=== PATIENT | female | born 1955 | race Caucasian/White ===

== ENCOUNTER 2020-08-31 05:20 | Inpatient (IN) ==
[2020-08-31] MEDS ORDERED: ONDANSETRON INJ 2 MG/ML 2 ML VIAL IV STA (05:41)
[2020-08-31] MEDS ORDERED: fentaNYL citrate 100 MCG/2 ML VIAL IV STA (05:41)
[2020-08-31] MEDS ORDERED: SODIUM CHLORIDE 0.9% 1000ML 1,000 ML IV ONE (05:41)
--- NOTE | 2020-08-31 05:46 | Emergency Department Note ---
Impression & Plan Acute cholecystitis, Hypertensive urgency, Acute hyperglycemia, Acute dehydration ED Provider Note Name: RAYMOND DE LA VEGA Age: 64 Sex: F Arrives Via: Walk-In Informant: Patient ED Provider: Zachariah Jackson MD Chief Complaint: Abdominal pain Impression: Acute Cholecystitis Hypertensive Urgency Acute Hyperglycemia Acute Dehydration Medical Decision Makin yr old female without medical care the last few years arrives for evaluation epigastric pain and vomiting. Dehydrated on examination with significant HTN. US RUQ obtained given location of pain and exam. Still HTN post pain control thus Labetalol ordered. US with concern for cholecystitis. Labs consistent with mild bili bump as well as some LFT elevations likely consistent with cholecystitis. She is hyperglycemic and I suspect this is finding of her being diabetic. Beta a bit elevated though I feel this is more likely dehydration than acute DKA. She has no evidence of acs. Pain is controlled with single dose pain med and dissection seems less likely with findings of cholecystitis on US. BP still elevated post 1st labetalol thus second dose administered while awaiting hospitalist evaluation. Prior Medical Record and Triage/Nursing Notes reviewed by Me Differentials: Cholecystis, Biliary pathology, diverticulitis, acs, PUD/GERD, Pancreatitis, dissection, aoric rupture, ischemia, SBO/LBO, amongst other pathologies. Vital Signs: reviewed and remarkable for HTN Interventions: saline lock, fentanyl 50mcg iv, zofran 4mg iv, labetalol 10mg iv x 2, nss bolus/gtt, mefoxin 2gm iv Labs:Reviewed and remarkable for elevated lfts, bsg Imaging:Radiologist interpretation reviewed by me: US RUQ concerning for cholecystitis EKG:Per My Interpretation: Indication Epigastric pain: NSR with moderately prolonged qtc 92 bpm, qtc 521. No Ectopy. No Ischemia. No previous for comparison Cardiac/Tele Monitoring: Cardiac Monitoring: An Order was placed for continuous cardiac monitoring. The monitor shows a rate of 90 with a normal sinus rhythm. Consults:Dr Amanuel TEJEDA Hospitalist Plan: Disposition:Hospitalization. Condition: Good History of Present Illness:64 yr old female arrives for evaluation of epigastric pain. Patient notes she developed epigastric pain 3 days ago. Waxes and wanes. Epigastric with mild radiation to back. Associated with nausea and vomiting. Much worse with eating. Better with sitting still. No fevers, syn cope, cp, sob, headache, neck pain, rashes, leg swelling, urinary//bowel symptoms, syncope, nor other symptoms. Using Pepto-Bismol without improvement. Denies previous symptoms like this. No recent trauma nor injury. Previously with . ROS: See above HPI for pertinent positives & negatives. A total of 10 systems reviewed and were otherwise negative. Past Medical History:None Past Surgical History: Family History:Mother stomach CA, brother cholecystitis Social History:Lives with son, no etoh, no tobacco use Home Medications:Multivitamins Allergies:NKDA Vitals:Blood Pressure: 200/111, Pulse 85, RR 20, T 36.5C, O2 97% on RA Physical Exam: GENERAL: Patient is very uncomfortable appearing and in moderate distress. Dehydrated appearing EYES: No scleral icterus, unremarkable pupils. ENT: Mucous membranes dry, no nasal congestion. NECK: No masses appreciated, nomeningismus, trachea is midline. RESPIRATORY: No dyspnea. Clear to auscultation and equal bilaterally. No wheeze, no rhonchi. CARDIOVASCULAR: Regular rate and rhythm.No murmurs, rubs, gallops appreciated. GASTROINTESTINAL: Moderate epigastric/RUQ TTP, otherwise abdomen soft, non- tender, no peritonitis.Bowel sounds positive.No masses appreciated. BACK: No midline tenderness, no CVA tenderness EXTREMITIES: Normal motion all extremities, no cyanosis, no edema. NEUROLOGIC: Alert and oriented, no acute motor or sensory deficits, no focal weakness, cranial nerves grossly intact. SKIN: No rash, no jaundice, no diaphoresis. PSYCH: Appropriate GCS: 15 ED Course: Times/Reassessments: Improvement in pain, some continued mild nausea, BP still elevated Zachariah Jackson MD Past Med/Surg History Medical History Acute cholecystitis Diabetes mellitus type 2 in nonobese Hypertensive urgency Prolonged Q-T interval on ECG Tobacco abuse Transaminitis Surgical History No significant past surgical history Family History Other Family history non-contributory Social History Smoking Status: Current every day smoker Tobacco Type: Cigarettes packs per day: 0.5; Hx Alcohol Use: No Hx Substance Use: No Preferred Language: Citizen Of [place] [employer] Required: No Beliefs That Will Affect Care: Jehovah'S Witness Jehovah'S Witness Beliefs: Gnosticist Current Living Situation: Spouse and Family Current Living Situation Comment: lives with and daughter Other Information That Helps Us Care for You: No Feels Safe at Home: Yes Safety Concerns: Feels Safe At This Time Assistive Devices: Glasses Allergies Allergies Allergy/AdvReac Type Severity Reaction Status Date / Time No Known Allergies Allergy Unverified 08/31/20 06:40 Home Meds Home Medications Medication Instructions Recorded Confirmed No Known Home Medications 08/31/20 08/31/20 Results & Data (ED) Vital Signs Vital Signs - 24 hr 08/31/20 05:20 08/31/20 05:25 08/31/20 05:38 Temperature 36.5 C Temperature Source Oral Pulse Rate 85 96 H Pulse Rate from SpO2 Sensor Respiratory Rate 20 19 Respiratory Effort / Characteristics Non-Labored Spontaneous Respiratory Depth Normal Normal Respiratory Pattern Regular Blood Pressure 200/111 H 225/114 H Blood Pressure Mean 140 151 Blood Pressure Position Sitting Pulse Oximetry 97 99 Oxygen Delivery Method Room Air Room Air Room Air Sepsis Recent Fever Within 48 Hours No Sepsis New/Unexplained Change in Mental Status No Sepsis Action Taken by Nursing No Action Required 08/31/20 05:40 08/31/20 06:00 08/31/20 06:01 Temperature Temperature Source Pulse Rate 97 H 96 H 94 H Pulse Rate from SpO2 Sensor 96 H 95 H 94 H Respiratory Rate 25 H 24 23 Respiratory Effort / Characteristics Respiratory Depth Respiratory Pattern Blood Pressure 226/105 H 240/110 H 228/114 H Blood Pressure Mean 145 153 152 Blood Pressure Position Pulse Oximetry 98 97 96 Oxygen Delivery Method Room Air Room Air Room Air Sepsis Recent Fever Within 48 Hours Sepsis New/Unexplained Change in Mental Status Sepsis Action Taken by Nursing 08/31/20 06:07 08/31/20 06:12 08/31/20 06:50 Temperature Temperature Source Pulse Rate 96 H 94 H 103 H Pulse Rate from SpO2 Sensor 95 H 94 H Respiratory Rate 24 22 31 H Respiratory Effort / Characteristics Respiratory Depth Respiratory Pattern Blood Pressure 231/116 H 241/105 H Blood Pressure Mean 154 150 Blood Pressure Position Pulse Oximetry 97 98 Oxygen Delivery Method Room Air Room Air Sepsis Recent Fever Within 48 Hours Sepsis New/Unexplained Change in Mental Status Sepsis Action Taken by Nursing 08/31/20 06:51 08/31/20 06:52 08/31/20 06:55 Temperature Temperature Source Pulse Rate 102 H 105 H 102 H Pulse Rate from SpO2 Sensor 103 H 104 H 103 H Respiratory Rate 23 24 25 H Respiratory Effort / Characteristics Respiratory Depth Respiratory Pattern Blood Pressure 235/121 H 235/127 H 241/126 H Blood Pressure Mean 159 163 164 Blood Pressure Position Pulse Oximetry 97 96 96 Oxygen Delivery Method Sepsis Recent Fever Within 48 Hours Sepsis New/Unexplained Change in Mental Status Sepsis Action Taken by Nursing 08/31/20 06:58 08/31/20 07:00 08/31/20 07:03 Temperature Temperature Source Pulse Rate 88 85 88 Pulse Rate from SpO2 Sensor 88 87 89 Respiratory Rate 25 H 25 H 25 H Respiratory Effort / Characteristics Respiratory Depth Respiratory Pattern Blood Pressure 225/103 H 220/105 H 228/129 H Blood Pressure Mean 143 143 162 Blood Pressure Position Pulse Oximetry 96 96 96 Oxygen Delivery Method Sepsis Recent Fever Within 48 Hours Sepsis New/Unexplained Change in Mental Status Sepsis Action Taken by Nursing 08/31/20 07:15 08/31/20 07:30 08/31/20 07:45 Temperature Temperature Source Pulse Rate 88 92 H 95 H Pulse Rate from SpO2 Sensor 86 91 H Respiratory Rate 25 H 28 H 23 Respiratory Effort / Characteristics Respiratory Depth Respiratory Pattern Blood Pressure 228/124 H 236/122 H 229/124 H Blood Pressure Mean 158 160 159 Blood Pressure Position Pulse Oximetry 97 97 Oxygen Delivery Method Sepsis Recent Fever Within 48 Hours Sepsis New/Unexplained Change in Mental Status Sepsis Action Taken by Nursing 08/31/20 08:00 08/31/20 08:15 08/31/20 08:30 Temperature Temperature Source Pulse Rate 81 87 84 Pulse Rate from SpO2 Sensor 82 85 84 Respiratory Rate 24 22 23 Respiratory Effort / Characteristics Respiratory Depth Respiratory Pattern Blood Pressure 208/105 H 215/99 H 133/77 Blood Pressure Mean 139 137 95 Blood Pressure Position Pulse Oximetry 97 97 98 Oxygen Delivery Method Sepsis Recent Fever Within 48 Hours Sepsis New/Unexplained Change in Mental Status Sepsis Action Taken by Nursing 08/31/20 08:45 Temperature Temperature Source Pulse Rate 71 Pulse Rate from SpO2 Sensor 71 Respiratory Rate 28 H Respiratory Effort / Characteristics Respiratory Depth Respiratory Pattern Blood Pressure 88/51 L Blood Pressure Mean 63 Blood Pressure Position Pulse Oximetry 98 Oxygen Delivery Method Sepsis Recent Fever Within 48 Hours Sepsis New/Unexplained Change in Mental Status Sepsis Action Taken by Nursing Laboratory Data Result diagrams: 08/31/20 05:45 08/31/20 20:33 Lab Results 08/31/20 08/31/20 08/31/20 Range/Units 05:45 05:45 05:45 WBC 11.14 H (4.8-10.8) K/uL RBC 5.07 (4.2-5.4) M/uL Hgb 15.0 (12.0-16.0) g/dL Hct 42.6 (37-47) % MCV 84.0 (80-100) fL MCH 29.6 (25-34) pg MCHC 35.2 (32-36) g/dL RDW Std Deviation 39.7 (36.4-46.3) fL RDW Coeff of Ramiro 13.1 (11.5-14.5) % Plt Count 204 (130-400) K/uL MPV 11.2 H (7.4-10.4) fL Immature Gran % (Auto) 0.1 % Neut % (Auto) 84.1 % Lymph % (Auto) 11.4 % Murray % (Auto) 3.9 % Eos % (Auto) 0.3 % Baso % (Auto) 0.2 % Neut # (Auto) 9.38 H (1.4-6.5) K/uL Lymph # (Auto) 1.27 (1.2-3.4) K/uL Murray # (Auto) 0.43 (0.11-0.59) K/uL Eos # (Auto) 0.03 (0-0.5) K/uL Baso # (Auto) 0.02 (0-0.2) K/uL Immature Gran # (Auto) 0.01 (0.00-0.02) K/uL D-Dimer Cancelled Sodium 134 L (136-145) mmol/L Potassium 3.1 L (3.5-5.1) mmol/L Chloride 100 (98-107) mmol/L Carbon Dioxide 23 (21-32) mmol/L Anion Gap 12.0 H (3-11) BUN 15 (7-18) mg/dl Creatinine 0.63 (0.6-1.2) mg/dl Est Cr Clr Drug Dosing 84.5 ml/min Est GFR ( Amer) 109.9 Est GFR (Non-Af Amer) 94.8 BUN/Creatinine Ratio 23.4 H (10-20) Glucose 325 H* (70-99) mg/dl POC Glucose (70-99) mg/dl Calcium 9.9 (8.5-10.1) mg/dl Total Bilirubin 1.5 H (0.2-1) mg/dl Direct Bilirubin 0.5 H (0-0.2) mg/dl AST 35 (15-37) U/L ALT 360 H (12-78) U/L Alkaline Phosphatase 277 H (45-117) U/L Troponin I < 0.015 (0-0.045) ng/ml Total Protein 8.0 (6.4-8.2) gm/dl Albumin 3.6 (3.4-5.0) gm/dl Lipase 72 L (73-393) U/L Beta-Hydroxybutyric Acd 16.40 H (0.2-2.81) mg/dl Urine Color Urine Appearance (Clear) Urine pH (4.5-7.5) Ur Specific [place] (1.000-1.030) Urine Protein (Negative) Urine Glucose (UA) (Negative) Urine Ketones (Negative) Urine Blood (Negative) Urine Nitrite (Negative) Urine Bilirubin (Negative) Urine Urobilinogen (Negative) Ur Leukocyte Esterase (Negative) Urine WBC (Auto) (0-5) /hpf Urine RBC (Auto) (0-4) /hpf U Hyaline Cast (Auto) (0-5) /lpf U Epithel Cells (Auto) (0-5) /lpf Urine Bacteria (Auto) (Negative) COVID-19 Eval Order SARS-CoV-2, RNA, NAAT (NEGATIVE) 08/31/20 08/31/20 08/31/20 Range/Units 05:45 07:50 07:50 WBC (4.8-10.8) K/uL RBC (4.2-5.4) M/uL Hgb (12.0-16.0) g/dL Hct (37-47) % MCV (80-100) fL MCH (25-34) pg MCHC (32-36) g/dL RDW Std Deviation (36.4-46.3) fL RDW Coeff of Ramiro (11.5-14.5) % Plt Count (130-400) K/uL MPV (7.4-10.4) fL Immature Gran % (Auto) % Neut % (Auto) % Lymph % (Auto) % Murray % (Auto) % Eos % (Auto) % Baso % (Auto) % Neut # (Auto) (1.4-6.5) K/uL Lymph # (Auto) (1.2-3.4) K/uL Murray # (Auto) (0.11-0.59) K/uL Eos # (Auto) (0-0.5) K/uL Baso # (Auto) (0-0.2) K/uL Immature Gran # (Auto) (0.00-0.02) K/uL D-Dimer Sodium (136-145) mmol/L Potassium (3.5-5.1) mmol/L Chloride (98-107) mmol/L Carbon Dioxide (21-32) mmol/L Anion Gap (3-11) BUN (7-18) mg/dl Creatinine (0.6-1.2) mg/dl Est Cr Clr Drug Dosing ml/min Est GFR ( Amer) Est GFR (Non-Af Amer) BUN/Creatinine Ratio (10-20) Glucose (70-99) mg/dl POC Glucose (70-99) mg/dl Calcium (8.5-10.1) mg/dl Total Bilirubin (0.2-1) mg/dl Direct Bilirubin (0-0.2) mg/dl AST (15-37) U/L ALT (12-78) U/L Alkaline Phosphatase (45-117) U/L Troponin I (0-0.045) ng/ml Total Protein (6.4-8.2) gm/dl Albumin (3.4-5.0) gm/dl Lipase (73-393) U/L Beta-Hydroxybutyric Acd (0.2-2.81) mg/dl Urine Color Dark Yellow Urine Appearance Clear (Clear) Urine pH 5.5 (4.5-7.5) Ur Specific [place] 1.034 H (1.000-1.030) Urine Protein 4+ H (Negative) Urine Glucose (UA) 3+ H (Negative) Urine Ketones 3+ H (Negative) Urine Blood 2+ H (Negative) Urine Nitrite Negative (Negative) Urine Bilirubin Negative (Negative) Urine Urobilinogen Negative (Negative) Ur Leukocyte Esterase Negative (Negative) Urine WBC (Auto) 1-5 (0-5) /hpf Urine RBC (Auto) 10-30 H (0-4) /hpf U Hyaline Cast (Auto) 1-5 (0-5) /lpf U Epithel Cells (Auto) >30 H (0-5) /lpf Urine Bacteria (Auto) Negative (Negative) COVID-19 Eval Order Covid19 [facility]Now [facility] SARS-CoV-2, RNA, NAAT NEGATIVE (NEGATIVE) 08/31/20 Range/Units 08:38 WBC (4.8-10.8) K/uL RBC (4.2-5.4) M/uL Hgb (12.0-16.0) g/dL Hct (37-47) % MCV (80-100) fL MCH (25-34) pg MCHC (32-36) g/dL RDW Std Deviation (36.4-46.3) fL RDW Coeff of Ramiro (11.5-14.5) % Plt Count (130-400) K/uL MPV (7.4-10.4) fL Immature Gran % (Auto) % Neut % (Auto) % Lymph % (Auto) % Murray % (Auto) % Eos % (Auto) % Baso % (Auto) % Neut # (Auto) (1.4-6.5) K/uL Lymph # (Auto) (1.2-3.4) K/uL [place] # (Auto) (0.11-0.59) K/uL Eos # (Auto) (0-0.5) K/uL Baso # (Auto) (0-0.2) K/uL Immature Gran # (Auto) (0.00-0.02) K/uL D-Dimer Sodium (136-145) mmol/L Potassium (3.5-5.1) mmol/L Chloride (98-107) mmol/L Carbon Dioxide (21-32) mmol/L Anion Gap (3-11) BUN (7-18) mg/dl Creatinine (0.6-1.2) mg/dl Est Cr Clr Drug Dosing ml/min Est GFR ( Amer) Est GFR (Non-Af Amer) BUN/Creatinine Ratio (10-20) Glucose (70-99) mg/dl POC Glucose 375 H* (70-99) mg/dl Calcium (8.5-10.1) mg/dl Total Bilirubin (0.2-1) mg/dl Direct Bilirubin (0-0.2) mg/dl AST (15-37) U/L ALT (12-78) U/L Alkaline Phosphatase (45-117) U/L Troponin I (0-0.045) ng/ml Total Protein (6.4-8.2) gm/dl Albumin (3.4-5.0) gm/dl Lipase (73-393) U/L Beta-Hydroxybutyric Acd (0.2-2.81) mg/dl Urine Color Urine Appearance (Clear) Urine pH (4.5-7.5) Ur Specific [place] (1.000-1.030) Urine Protein (Negative) Urine Glucose (UA) (Negative) Urine Ketones (Negative) Urine Blood (Negative) Urine Nitrite (Negative) Urine Bilirubin (Negative) Urine Urobilinogen (Negative) Ur Leukocyte Esterase (Negative) Urine WBC (Auto) (0-5) /hpf Urine RBC (Auto) (0-4) /hpf U Hyaline Cast (Auto) (0-5) /lpf U Epithel Cells (Auto) (0-5) /lpf Urine Bacteria (Auto) (Negative) COVID-19 Eval Order SARS-CoV-2, RNA, NAAT (NEGATIVE) Administered Medications Heparin Sodium (Porcine) (Heparin Sod 5,000 Unit/0.5 Ml Vial) 5,000 units SQ Q8 [facility] Stop: 09/30/20 13:59 Last Admin: 08/31/20 22:09 Dose: 5,000 units Documented by: [id number] Admin: 08/31/20 13:59 Dose: 5,000 units Documented by: [id number] Potassium Chloride/Sodium Chloride (Normal Saline W/20 Meq Kcl) 20 meq in 1,000 mls @ 150 mls/hr IV .Q6H40M [facility]; Protocol Stop: 09/30/20 09:42 Last Admin: 08/31/20 18:31 Dose: Not Given Documented by: [id number] Admin: 08/31/20 18:30 Dose: 150 mls/hr Documented by: [id number] Infusion: 08/31/20 18:28 Dose: 200 mls/hr Documented by: [id number] Infusion: 08/31/20 13:58 Dose: 200 mls/hr Documented by: [id number] Infusion: 08/31/20 10:45 Dose: 0 mls/hr Documented by: [id number] Admin: 08/31/20 10:15 Dose: 200 mls/hr Documented by: [id number] Insulin Human Regular 250 (units/ Sodium Chloride) 250 mls @ 4.2 mls/hr IV .Q24H [facility]; Protocol Stop: 09/30/20 14:59 Last Titration: 08/31/20 18:58 Dose: 4.2 units/hr, 4.2 mls/hr Documented by: [id number] Cosigned by: [id number] Titration: 08/31/20 17:11 Dose: 4.2 units/hr, 4.2 mls/hr Documented by: [id number] Cosigned by: [id number] Titration: 08/31/20 16:25 Dose: 4.2 units/hr, 4.2 mls/hr Documented by: [id number] Cosigned by: [id number] Admin: 08/31/20 15:18 Dose: 3.5 units/hr, 3.5 mls/hr Documented by: [id number] Cosigned by: [id number] Cefoxitin Sodium 2,000 mg/ (Dextrose) 60 mls @ 100 mls/hr IV Q6H [facility] Stop: 09/10/20 20:59 Last Infusion: 08/31/20 21:40 Dose: 0 mls/hr Documented by: [id number] Admin: 08/31/20 21:00 Dose: 100 mls/hr Documented by: [id number] Discontinued Medications Fentanyl Citrate (Fentanyl Citrate 100 Mcg/2 Ml Vial) 50 mcg IV NOW STA Stop: 08/31/20 05:42 Last Admin: 08/31/20 05:56 Dose: 50 mcg Documented by: [id number] Sodium Chloride (Nss 1000ml) 1,000 mls @ 999 mls/hr IV .Q1H1M ONE Stop: 08/31/20 06:41 Last Infusion: 08/31/20 07:00 Dose: 0 mls/hr Documented by: [id number] Admin: 08/31/20 05:50 Dose: 999 mls/hr Documented by: [id number] Sodium Chloride (Nss 1000ml) 1,000 mls @ 200 mls/hr IV .Q5H [facility] Stop: 09/30/20 07:14 Last Infusion: 08/31/20 10:06 Dose: 0 mls/hr Documented by: [id number] Admin: 08/31/20 07:15 Dose: 200 mls/hr Documented by: [id number] Cefoxitin Sodium (Mefoxin) 2,000 mg in 60 mls @ 100 mls/hr IV NOW STA Stop: 08/31/20 07:43 Last Infusion: 08/31/20 10:06 Dose: 0 mls/hr Documented by: [id number] Admin: 08/31/20 08:12 Dose: 100 mls/hr Documented by: [id number] Potassium Chloride (K Vadim / Wtr) 10 meq in 100 mls @ 100 mls/hr IV Q1H [facility]; Protocol Stop: 08/31/20 13:29 Last Infusion: 08/31/20 13:52 Dose: 0 mls/hr Documented by: [id number] Admin: 08/31/20 12:49 Dose: 100 mls/hr Documented by: [id number] Infusion: 08/31/20 12:45 Dose: 100 mls/hr Documented by: [id number] Admin: 08/31/20 11:45 Dose: 100 mls/hr Documented by: [id number] Infusion: 08/31/20 11:44 Dose: 100 mls/hr Documented by: [id number] Admin: 08/31/20 10:44 Dose: 100 mls/hr Documented by: [id number] Magnesium Sulfate/Dextrose (Magnesium Sulfate / D5w) 1 gm in 100 mls @ 50 mls/hr IV Q2H [facility] Stop: 08/31/20 16:29 Last Infusion: 08/31/20 16:25 Dose: 0 mls/hr Documented by: [id number] Admin: 08/31/20 14:20 Dose: 50 mls/hr Documented by: [id number] Infusion: 08/31/20 14:19 Dose: 50 mls/hr Documented by: [id number] Admin: 08/31/20 12:19 Dose: 50 mls/hr Documented by: [id number] Insulin Human Regular 3.5 (units/ Syringe) 3.5 mls @ 1.75 mls/min IV NOW ONE Stop: 08/31/20 15:16 Last Admin: 08/31/20 15:16 Dose: 1.75 mls/min Documented by: [id number] Cosigned by: [id number] Insulin Aspart (Insulin Aspart 100 Units/Ml 3 Ml Pen) 7 units SC Q2H [facility] Stop: 09/30/20 10:29 Last Admin: 08/31/20 13:59 Dose: 7 units Documented by: [id number] Cosigned by: [id number] Admin: 08/31/20 11:57 Dose: 7 units Documented by: [id number] Cosigned by: [id number] Admin: 08/31/20 10:45 Dose: 7 units Documented by: [id number] Cosigned by: [id number] Insulin Glargine (Insulin Glargine Solostar 100 Units/Ml 3 Ml Pen) 12 units SC NOW ONE Stop: 08/31/20 11:01 Last Admin: 08/31/20 11:56 Dose: 12 units Documented by: [id number] Cosigned by: [id number] Labetalol HCl (Labetalol Hcl Iv 5 Mg/Ml 20ml) 10 mg IV NOW STA Stop: 08/31/20 06:46 Last Admin: 08/31/20 06:52 Dose: 10 mg Documented by: [id number] Cosigned by: [id number] Labetalol HCl (Labetalol Hcl Iv 5 Mg/Ml 20ml) 10 mg IV NOW STA Stop: 08/31/20 07:09 Last Admin: 08/31/20 07:47 Dose: 10 mg Documented by: [id number] Cosigned by: [id number] Ondansetron HCl (Ondansetron Inj 2 Mg/Ml 2 Ml Vial) 4 mg IV NOW STA Stop: 08/31/20 05:42 Last Admin: 08/31/20 05:56 Dose: 4 mg Documented by: [id number] Discharge Plan Visit Data Chief Complaint: Abdominal Pain Stated Complaint: SEVERE UPPER ABDOMINAL PAIN,VOMITING ED Provider: Zachariah Jackson Discharge Problem: Acute cholecystitis, Hypertensive urgency, Acute hyperglycemia, Acute dehydration Patient Disposition: Admitted As Inpatient Discharge Instructions Interventions: ED Discharge Assessment Last Done: 08/31/20 09:17
[2020-08-31 06:17] LABS: Basophils # (auto) 0.02 K/uL (0-0.2); Basophils % (auto) 0.2 %; Eosinophils # (auto) 0.03 K/uL (0-0.5); Eosinophils % (auto) 0.3 %; Hematocrit (blood only) 42.6 % (37-47); Immature Granulocytes # (auto) 0.01 K/uL (0.00-0.02); Immature Granulocytes % (auto) 0.1 %; Lymphocytes # (auto) 1.27 K/uL (1.2-3.4); Lymphocytes % (auto) 11.4 %; Mean Corpuscular Hemoglobin 29.6 pg (25-34); Mean Corpuscular Hgb Conc 35.2 g/dL (32-36); Mean Platelet Volume 11.2 fL (7.4-10.4); Monocytes # (auto) 0.43 K/uL (0.11-0.59); Monocytes % (auto) 3.9 %; Neutrophils # (auto) 9.38 K/uL (1.4-6.5); Neutrophils % (auto) 84.1 %; Platelet Count 204 K/uL (130-400); RDW Coefficient of Variation 13.1 % (11.5-14.5); RDW Standard Deviation 39.7 fL (36.4-46.3); Red Blood Count 5.07 M/uL (4.2-5.4); White Blood Count 11.14 K/uL (4.8-10.8)
[2020-08-31 06:22] LABS: Appearance Urine Clear (Clear); Bacteria Urine Automated Negative (Negative); Bilirubin Urine Negative (Negative); Blood Urine 2+ (Negative); Color Urine Dark Yellow; Epithelial Cell Urine Auto >30 /lpf (0-5); Glucose Urine UA 3+ (Negative); Ketones Urine 3+ (Negative); Leukocyte Esterase Urine Negative (Negative); Nitrite Urine Negative (Negative); Protein Urine 4+ (Negative); Specific Gravity Urine 1.034 (1.000-1.030); Urobilinogen Urine Negative (Negative); pH Urine 5.5 (4.5-7.5)
[2020-08-31 06:40] LABS: Alanine Aminotransferase 360 U/L (12-78); Albumin Level 3.6 gm/dl (3.4-5.0); Alkaline Phosphatase 277 U/L (45-117); Aspartate Aminotransferase 35 U/L (15-37); BUN Creatinine Ratio 23.4 (10-20); Bilirubin Direct 0.5 mg/dl (0-0.2); Bilirubin,Total 1.5 mg/dl (0.2-1); Blood Urea Nitrogen 15 mg/dl (7-18); Calcium 9.9 mg/dl (8.5-10.1); Carbon Dioxide 23 mmol/L (21-32); Chloride 100 mmol/L (98-107); Creatinine Clr Calc Pharmacy 84.5 ml/min; Est GFR (African American) 109.9; Est GFR (Non-African American) 94.8; Glucose 325 mg/dl (70-99); Lipase 72 U/L (73-393); Potassium 3.1 mmol/L (3.5-5.1); Sodium 134 mmol/L (136-145); Troponin I < 0.015 ng/ml (0-0.045)
[2020-08-31] MEDS ORDERED: LABETALOL HCL IV 5 MG/ML 20ML IV STA ×2 (06:45→07:08)
--- NOTE | 2020-08-31 06:57 | Ultrasound Report ---
US gallbladder HISTORY: 64 years-old Female epigastric pain acute right upper quadrant abdominal pain COMPARISON: None TECHNIQUE: Multiple real-time sonographic images of the abdominal right upper quadrant were obtained assessing grayscale appearance and color flow FINDINGS: Trace perihepatic free fluid. The visualized pancreas is unremarkable. Slightly echogenic appearance of the liver suggestion of hepatic steatosis with areas of fatty sparing near the david hepatis. Ther e is no hepatic mass or intrahepatic biliary ductal dilation. Layering cholelithiasis. The gallbladde r wall is mildly thickened at 4 mm. There is mild gallbladder distention measuring up to 9.5 cm in le ngth. No pericholecystic fluid. Sonographic Traylor sign was unable to be assessed secondary to patien t recently receiving pain medication. Common bile duct is normal at 6 mm. The imaged right kidney is unremarkable with a few cysts measuring up to 1.5 cm. No hydronephrosis. IMPRESSION: 1. Mildly distended gallbladder with cholelithiasis, gallbladder wall thickening and trace perihepati c free fluid. Findings are suspicious for acute cholecystitis. 2. No biliary ductal dilation. 3. Echogenic liver suggestive of hepatic steatosis. ACT 112: Negative or not required by law. The above report was generated using voice recognition software. It may contain grammatical, syntax o r spelling errors. Electronically signed by: Ever Scott M.D. 08/31/2020 6:56 AM
[2020-08-31] MEDS ORDERED: cefOXitin 2,000 MG/60 ML BAG IV STA (07:08)
[2020-08-31] MEDS ORDERED: SODIUM CHLORIDE 0.9% 1000ML 1,000 ML IV SCH (07:15)
[2020-08-31] MEDS ORDERED: DC ALL PREVIOUSLY ORDERED DIABETES MEDS ONE (08:26)
--- NOTE | 2020-08-31 08:53 | History & Physical Report ---
Date of Service August 31, 2020 Assessment & Plan (1) Diabetes mellitus type 2 in nonobese: Patient reported prior history of diabetes but was taken off her Metformin greater than 4 years ago Hemoglobin A1c is 8.9% Initially ordered a insulin drip but with patient's potassium being 3.1 it was d ecided to provide high dose subcutaneous treatment Continue to follow per hyperglycemic protocol Anion gap is 12 Patient does have ketones in her urine Suspect patient has untreated diabetes mellitus type 2. Will most likely need insulin on discharge Continue to monitor for diabetic ketoacidosis Continue IV fluids (2) Seizure: Patient has no history of seizure in the past During my examination the patient had what appeared to be a seizure event where her eyes rolled up and patient was unresponsive for 10 to 20 seconds. Patient then had somewhat of a post ictal haze for several seconds EEG was negative for epileptical waveforms. We will discontinue seizure precautions (3) Hypertensive urgency: Systolic pressure 238 on my initial visit Patient received labetalol 10 mg IV x2 and systolic blood pressure dropped to 88 mmHg Hold on further antihypertensives at this time Continue with IV hydration Treat underlying hyperglycemia (4) Hypokalemia: Initial hemoglobin 3.1 Currently hemoglobin is going up nicely at 3.3 and then 3.5 Magnesium is being repleted Continue to follow serial labs every 4 hours for now (5) Transaminitis: Patient denies heavy alcohol consumption No prior liver disease Ultrasound of abdomen shows echogenic liver suggestive of hepatic steatosis Continue with IV hydration and follow serial labs (6) Hyponatremia: Sodium is slightly low at 134 mmol/L Received 1 L of normal saline in the emergency department Continuing normal saline with 20 mEq of potassium at 200 mL/h Follow serial labs Patient alert and oriented (7) Tobacco abuse: Patient currently smokes 1/2 pack/day Deferring on NicoDerm patch Patient did have a period where she quit smoking but started smoking again 7 or 8 years ago Counseled on complete abstention Smoking cessation order placed (8) Prolonged Q-T interval on ECG: Normal sinus rhythm on EKG with no other significant abnormalities Echocardiogram ordered Check serial EKGs in the morning No chest pain or tightness Monitor on telemetry (9) DVT prophylaxis: No chemical prophylaxis at this time SCD knee-high's ordered CARITO hose ordered (10) Acute cholecystitis: Ultrasound reveals some sludge and apparent cholecystitis At this point we will continue to hydrate Patient has no current nausea or vomiting and has no abdominal pain We will continue cefoxitin for now Continue supportive care We will defer on surgical consult until primary issues are resolved History of Present Illness Primary Care Provider: WIL Montaño Attending: Dr. Vital This is a 64-year-old female that reports a past medical history of prediabetes mellitus type II and tobacco abuse. She denies any other prior past medical history. The patient states that she has a history of diabetes and was on Metformin for period of time but her doctor took her off of that medication more than 4 years ago. Otherwise, she states that she has not received any other medical care. She has 1 child and during the delivery she was in the ICU. She has no other reported inpatient stays. The patient reports that over the last 2 days she has had increased abdominal pain. She has had some nausea and vomiting but no hematemesis no diarrhea. She denies any fever. She does state that this morning she had chills and rigors. Ultrasound imaging revealed what appears to be acute cholecystitis. Laboratory results were reviewed and showed possible acute diabetic ketoacidosis although her anion gap is only 12. She has hypokalemia with a potassium of 3.1. Magnesium is 1.7. Phosphorus is currently pending. Patient also found to have transaminitis. Physical examination with no acute pain with palpation and no guarding. Patient did report with hypertensive urgency and received labetalol x2 resulting in a systolic blood pressure of 88 mmHg. She received 1 L of normal saline in the emergency department and was placed on maintenance dosing of 200 mL/h. EKG revealed prolonged QTC at 521 ms. Echocardiogram was ordered and is pending. D-dimer was elevated to 1200. No hypoxia. No tachycardia. No pleuritic chest pain. Patient admitted to PCU telemetry Allergies Allergy/AdvReac Type Severity Reaction Status Date / Time No Known Allergies Allergy Unverified 08/31/20 06:40 Home Medications Medication Instructions Recorded Confirmed Type No Known Home Medications 08/31/20 08/31/20 History Past Med/Surg History Medical History (Updated 09/01/20 @ 15:52 by Nick Girard MD) Acute cholecystitis Anemia Diabetes mellitus type 2 in nonobese Hypertensive urgency Prolonged Q-T interval on ECG Smoker Tobacco abuse Transaminitis Surgical History (Updated 09/02/20 @ 14:56 by Daniela Franco RN) Hx laparoscopic cholecystectomy (09/02/20) Laparoscopic Cholecystectomy, diagnostic laparoscopy with washout Dr. Bush 09/02/20 No significant past surgical history Family History Other Family history non-contributory Social History Smoking Status: Current every day smoker Tobacco Type: Cigarettes packs per day: 0.5; Hx Alcohol Use: No Hx Substance Use: No Preferred Language: Greenlandic Communication Ability: Effective Strip Stamp Straightener Required: No Beliefs That Will Affect Care: Jewish Jewish Beliefs: Christianity Current Living Situation: Spouse and Family Current Living Situation Comment: lives with and daughter Other Information That Helps Us Care for You: No Feels Safe at Home: Yes Safety Concerns: Feels Safe At This Time Assistive Devices: Glasses Review of Systems Review of Systems: All systems reviewed & are unremarkable except as noted in HPI & below Physical Exam Physical Exam: GENERAL : No acute distress. Patient appears ill EYES: No icterus, gaze conjugate. Pupils equal round and reactive to light NOSE: No evidence of epistaxis MOUTH: No lesions or candidiasis. Mucosa dry NECK: Supple. No stridor or bruits appreciated LUNGS: CTA B/L, no wheezes, rales or rhonchi HEART: Regular, rate controlled ABDOMEN: Soft, NT, ND, BS Present. No rebound tenderness. No guarding. EXTREMITIES: No LE edema, pedal pulses intact NEURO: A&OX3. Results & Data Results & Data ([facility]) Vital Signs (Past 12 Hours) Vital Signs Temp Pulse Resp BP Pulse Ox 08/31/20 08:30 84 23 133/77 98 08/31/20 08:15 87 22 215/99 H 97 08/31/20 08:00 81 24 208/105 H 97 08/31/20 07:45 95 H 23 229/124 H 08/31/20 07:30 92 H 28 H 236/122 H 97 08/31/20 07:15 88 25 H 228/124 H 97 08/31/20 07:03 88 25 H 228/129 H 96 08/31/20 07:00 85 25 H 220/105 H 96 08/31/20 06:58 88 25 H 225/103 H 96 08/31/20 06:55 102 H 25 H 241/126 H 96 08/31/20 06:52 105 H 24 235/127 H 96 08/31/20 06:51 102 H 23 235/121 H 97 08/31/20 06:50 103 H 31 H 08/31/20 06:12 94 H 22 241/105 H 98 08/31/20 06:07 96 H 24 231/116 H 97 08/31/20 06:01 94 H 23 228/114 H 96 08/31/20 06:00 96 H 24 240/110 H 97 08/31/20 05:40 97 H 25 H 226/105 H 98 08/31/20 05:38 96 H 19 225/114 H 99 08/31/20 05:25 36.5 C 85 20 200/111 H 97 Laboratory Results 08/31/20 05:45 08/31/20 12:16 08/31/20 05:45 Troponin I < 0.015 08/31/20 08/31/20 08/31/20 08:59 09:24 12:16 ABG pH 7.43 ABG pCO2 33 L ABG pO2 88 ABG HCO3 21 ABG O2 Saturation 97.1 H ABG Base Excess -2.4 VBG pH Cancelled 7.46 H Diagnostic Findings US gallbladder HISTORY: 64 years-old Female epigastric pain acute right upper quadrant abdomin al pain COMPARISON: None TECHNIQUE: Multiple real-time sonographic images of the abdominal right upper quadrant were obtained assessing grayscale appearance and color flow FINDINGS: Trace perihepatic free fluid. The visualized pancreas is unremarkable. Slightly echogenic appearance of the liver suggestion of hepatic steatosis with areas of fatty sparing near the david hepatis. There is no hepatic mass or intrahepatic biliary ductal dilation. Layering cholelithiasis. The gallbladder wall is mildly thickened at 4 mm. There is mild gallbladder distention measuring up to 9.5 cm in length. No pericholecystic fluid. Sonographic Traylor sign was unable to be assessed secondary to patient recently receiving pain medication. Common bile duct is normal at 6 mm. The imaged right kidney is unremarkable with a few cysts measuring up to 1.5 cm. No hydronephrosis. IMPRESSION: 1. Mildly distended gallbladder with cholelithiasis, gallbladder wall thickening and trace perihepatic free fluid. Findings are suspicious for acute cholecystitis. 2. No biliary ductal dilation. 3. Echogenic liver suggestive of hepatic steatosis. Electronically signed by: Ever Scott M.D. 08/31/2020 6:56 AM Code Status & VTE Plan Code Status Full resuscitation. Level I VTE Prophylaxis Plan VTE Prophylaxis will be ordered: Yes Supervising Physician Co-Signing Physician Notes Patient was seen and examined at bedside. Obtained a clinical history and physical examination during face to face encounter. Discussed case with APC Chalor and discussed plan of care with him and patient separately. I reviewed above note and agree with it. Will admit to PCU for DKA, placed on insulin drip. Will consult GI and gen surg for possible cholecystectomy due to positive images. PG Care Time/CCT Total # of Minutes Spent Total Time Spent with Patient: Total time spent is greater than 50% in coordination of care (as documented) at patient's floor/unit and/or counseling patient: 65 Coding Level of Care Code 85556 Initial Inpt Care Lvl 3 Diagnoses Diabetes mellitus type 2 in nonobese E11.9 Seizure R56.9 Hypertensive urgency I16.0 Hypokalemia E87.6 Transaminitis R74.01 Hyponatremia E87.1 Tobacco abuse Z72.0 Prolonged Q-T interval on ECG R94.31 DVT prophylaxis Z29.9 Acute cholecystitis K81.0 Time Spent (min) 65
[2020-08-31] MEDS ORDERED: INSULIN REGULAR 250 UNITS in SODIUM CHLORIDE 0.9% 247.5 ML IV SCH ×2 (09:30→15:00)
[2020-08-31 09:36] LABS: Calcium 8.8 mg/dl (8.5-10.1); Est GFR (African American) 73.4; Est GFR (Non-African American) 63.3; Magnesium 1.7 mg/dl (1.8-2.4); Potassium 3.3 mmol/L (3.5-5.1)
[2020-08-31 09:37] LABS: Base Excess ABG -2.4 mEq/L (-9-1.8); HCO3 ABG 21 mmol/L (19-24); Oxygen Saturation ABG 97.1 % (90-95); PCO2 ABG 33 mmHg (35-46); PO2 ABG 88 mmHg (80-95); pH ABG 7.43 (7.35-7.45)
[2020-08-31 09:38] LABS: Allen Test Pos (Pos)
[2020-08-31] MEDS ORDERED: POLYETHYLENE (MIRALAX) 17 GM PACK PO PRN (09:43)
[2020-08-31] MEDS ORDERED: ONDANSETRON INJ 2 MG/ML 2 ML VIAL IV PRN (09:43)
[2020-08-31] MEDS ORDERED: PHARMACY GLYCEMIC MGMT CONSULT PRN (09:48)
[2020-08-31 09:50] LABS: Beta-Hydroxybutyrate 14.85 mg/dl (0.2-2.81); D Dimer 1200 ug/L FEU (0-500)
[2020-08-31] MEDS: NSS + 20MEQ KCL 20 MEQ/1,000 ML BAG IV SCH ×3 (10:15→18:31)
[2020-08-31 10:16] LABS: Estimated Average Glucose 209 mg/dl; Hemoglobin A1C 8.9 % (4.5-5.6)
[2020-08-31] MEDS ORDERED: GLUCOSE 10 TABS/TUBE PO PRN (10:30)
[2020-08-31] MEDS ORDERED: GLUCOSE 40% GEL 15 GM TUBE PO PRN (10:30)
[2020-08-31] MEDS ORDERED: DEXTROSE 50% 50 ML SYRINGE IV PRN (10:30)
[2020-08-31] MEDS ORDERED: GLUCAGON FOR INJ 1 MG VIAL IM PRN (10:30)
[2020-08-31] MEDS ORDERED: CARBOHYDRATES FOR HYPOGLYCEMIA PO PRN (10:30)
[2020-08-31] MEDS: POTASSIUM CHLORIDE / WTR 10 MEQ/100 ML PLCT IV SCH ×3 (10:44→12:49)
[2020-08-31] MEDS: INSULIN ASPART 100 UNITS/ML 3 ML PEN SC SCH ×3 (10:45→13:59)
--- NOTE | 2020-08-31 10:46 | Electroencephalogram ---
EEG Procedure Note Date of Service August 31, 2020 Start / End Times Start Time: 10:14 AM End Time: 10:34 AM Referring Physician Frank Lakhani History Seizure-like episode, no history of seizures Home Medication List Medication Instructions Recorded Confirmed Type No Known Home Medications 08/31/20 08/31/20 History Inpatient Medication List Potassium Chloride/Sodium Chloride (Normal Saline W/20 Meq Kcl) 20 meq in 1,000 mls @ 200 mls/hr IV .Q5H JAMES Stop: 09/30/20 09:42 Last Admin: 08/31/20 10:15 Dose: 200 mls/hr Documented by: [id number] Discontinued Medications Fentanyl Citrate (Fentanyl Citrate 100 Mcg/2 Ml Vial) 50 mcg IV NOW STA Stop: 08/31/20 05:42 Last Admin: 08/31/20 05:56 Dose: 50 mcg Documented by: [id number] Sodium Chloride (Nss 1000ml) 1,000 mls @ 999 mls/hr IV .Q1H1M ONE Stop: 08/31/20 06:41 Last Infusion: 08/31/20 07:00 Dose: 0 mls/hr Documented by: [id number] Admin: 08/31/20 05:50 Dose: 999 mls/hr Documented by: [id number] Sodium Chloride (Nss 1000ml) 1,000 mls @ 200 mls/hr IV .Q5H JAMES Stop: 09/30/20 07:14 Last Infusion: 08/31/20 10:06 Dose: 0 mls/hr Documented by: [id number] Admin: 08/31/20 07:15 Dose: 200 mls/hr Documented by: [id number] Cefoxitin Sodium (Mefoxin) 2,000 mg in 60 mls @ 100 mls/hr IV NOW STA Stop: 08/31/20 07:43 Last Infusion: 08/31/20 10:06 Dose: 0 mls/hr Documented by: [id number] Admin: 08/31/20 08:12 Dose: 100 mls/hr Documented by: [id number] Labetalol HCl (Labetalol Hcl Iv 5 Mg/Ml 20ml) 10 mg IV NOW STA Stop: 08/31/20 06:46 Last Admin: 08/31/20 06:52 Dose: 10 mg Documented by: [id number] Cosigned by: [id number] Labetalol HCl (Labetalol Hcl Iv 5 Mg/Ml 20ml) 10 mg IV NOW STA Stop: 08/31/20 07:09 Last Admin: 08/31/20 07:47 Dose: 10 mg Documented by: [id number] Cosigned by: [id number] Ondansetron HCl (Ondansetron Inj 2 Mg/Ml 2 Ml Vial) 4 mg IV NOW STA Stop: 08/31/20 05:42 Last Admin: 08/31/20 05:56 Dose: 4 mg Documented by: [id number] Description This is a 21 electrode EEG with a single channel dedicated to limited EKG. The electrodes were placed in accordance with the International 10-20 system. There is a well-developed posterior dominant rhythm of 10 Hz which is symmetrically distributed and attenuates with eye opening. There is a normal anterior to posterior organization. Photic stimulation is unremarkable. Hyperventilation is not performed. There is a symmetric frontal beta rhythm. There is a minimal degree of admixed theta activity. There is no focal or lateralized slowing. No epileptiform abnormalities observed. No changes suggestive of sleep. Interpretation Normal-appearing awake/drowsy EEG. A normal EEG does not completely exclude a diagnosis of epilepsy. Further clinical correlation may be needed. [facility] Procedure Codes Indication for Procedure (1) Seizure: Neurology Neurology: [id number] EEG include record awake & drowsy
[2020-08-31] MEDS ORDERED: INSULIN GLARGINE SOLOSTAR 100 UNITS/ML 3 ML PEN SC ONE (11:00)
[2020-08-31] MEDS ORDERED: INSULIN ASPART 100 UNITS/ML 3 ML PEN SC SCH (11:30)
--- NOTE | 2020-08-31 11:33 | Electrocardiogram Report ---
Test Reason : Blood Pressure : / mmHG Vent. Rate : 092 BPM Atrial Rate : 092 BPM P-R Int : 166 ms QRS Dur : 082 ms QT Int : 422 ms P-R-T Axes : 067 029 042 degrees QTc Int : 521 ms Normal sinus rhythm Possible Left atrial enlargement Prolonged QT Abnormal ECG No previous ECGs available Confirmed by Elia Woodson ([id number]) on 08/31/2020 11:32:59 AM Referred By: REFERRED SELF Confirmed By:Elia Woodson
--- NOTE | 2020-08-31 11:44 | Pharmacy Report ---
Pharmacy Glycemic Short Note 2 - Date of Service August 31, 2020 - Glycemic Short BSG Results (Last 24 hours): 08/31/20 08/31/20 08/31/20 05:45 08:38 08:59 Glucose 325 H* 396 H* POC Glucose 375 H* 08/31/20 08/31/20 10:10 10:11 Glucose POC Glucose 500 H* 483 H* OUTPATIENT ANTIDIABETIC REGIMEN: * N/A * HbA1C = 8.9% (08/31/20) ASSESSMENT: * Ms Willson is a 64 y/o F with a new diagnosis of T2DM who presents with abdominal pain. Blood sugars were elevated on admission at 375 mg/dL. * Patient is NPO for abdominal pain. * Discussed patient with admitting PA, due to patient's potassium of 3.3 ... will hold off on IV insulin. IV potassium replacement ordered. * Aggressive SQ insulin ordered with 0.1 unit/kg q2 hours until BSG < 200 mg/dL. Then start weight-based stress of 3 Novolog q4 hours. (CF 25 CR 8 with goal range of 110-140 mg/dL). * Give full weight-based stress of 1 Lantus dose. Conservative due to NPO status. PLAN FOR INPATIENT GLYCEMIC CONTROL: * Basal insulin * Lantus 12 units SQ x 1 * Bolus insulin --> currently 7 units SQ q2 hours with transition as listed above. PLAN FOR DISCHARGE: * TBD
[2020-08-31] MEDS: MAGNESIUM SULFATE / D5W 1 GM/100 ML BAG IV SCH ×2 (12:19→14:20)
[2020-08-31 13:13] LABS: BUN Creatinine Ratio 29.8 (10-20); Creatinine Clr Calc Pharmacy 83.1 ml/min; Est GFR (African American) 106.1; Est GFR (Non-African American) 91.6; Magnesium 1.9 mg/dl (1.8-2.4); Phosphorus 4.6 mg/dl (2.5-4.9); Potassium 3.8 mmol/L (3.5-5.1)
[2020-08-31 13:31] LABS: Beta-Hydroxybutyrate 10.17 mg/dl (0.2-2.81)
[2020-08-31] MEDS: HEPARIN SOD 5,000 UNIT/0.5 ML VIAL SQ SCH ×2 (13:59→22:09)
--- NOTE | 2020-08-31 15:00 | XCELERA ---
[id number]
[2020-08-31] MEDS ORDERED: INSULIN HUMAN REGULAR PER UNIT 3.5 UNITS in SYRINGE 3.465 ML IV ONE (15:15)
[2020-08-31] MEDS ORDERED: Nursing to Pharmacy Communication SCH (16:45)
[2020-08-31 17:34] LABS: BUN Creatinine Ratio 31.6 (10-20); Calcium 8.6 mg/dl (8.5-10.1); Creatinine Clr Calc Pharmacy 75.6 ml/min; Est GFR (African American) 94.6; Est GFR (Non-African American) 81.6; Magnesium 2.7 mg/dl (1.8-2.4); Phosphorus 3.1 mg/dl (2.5-4.9); Potassium 3.5 mmol/L (3.5-5.1)
[2020-08-31 17:47] LABS: Beta-Hydroxybutyrate 0.97 mg/dl (0.2-2.81)
--- NOTE | 2020-08-31 20:09 | Surgery Consultation ---
Date of Consultation August 31, 2020 Assessment & Plan (1) Acute cholecystitis: Patient will be considered for cholecystectomy in the future. However she has numerous medical issues that need to be optimized prior to undergoing surgery. For the present time the following recommendations should be in place: We will keep the patient n.p.o. for the present time Continue hydration Provide analgesics Provide and antiemetics Continue antibiotics. She did receive cefoxitin in the emergency department we will continue Continue optimization of her acute medical issues as directed by the hospitalist service. If she can be optimized over the next 24 hours cholecystectomy will be considered on 09/02/2020. History of Present Illness Reason for Consultation: Cholecystitis Attending Physician: Jean Pierre Vital History of Present Illness This is a 64-year-old female who presented to [facility] to nausea and abdominal pain. The patient notes that she was in her usual state of health leading a very active lifestyle until 5 days ago she developed nausea, vomiting, and abdominal pain located primarily in the right upper quadrant. Patient notes that this occurred proximally 1 hour after eating a meal. She had no diarrhea, fevers, shakes, chills, or shortness of breath. She also denied chest pain. She notes that the pain subsided however over the ensuing 5 days she noted that her symptoms would intermittently return usually after eating and earlier today her symptoms returned and became unbearable so she presented to the emergency department. In the emergency department a gallbladder ultrasound was performed that showed a distended gallbladder with gallbladder wall thickening and pericholecystic fluid concerning for cholecystitis. Her white blood cell count was slightly elevated at 11.1. Her hemoglobin, hematocrit, and platelet count were noted to be within normal range. Her sodium was noted to be 134 and her potassium was 3.1. Her BUN and creatinine were noted to be within normal range. She was noted to be hyperglycemic with glucose levels ranging from 325-424. Her total bilirubin had a slight elevation at 1.5 with a direct bilirubin with a slight elevation of 0.5. Her ALT was noted to be 360 but her AST was within the normal range. Alkaline phosphatase was elevated at 277. Her lipase was not elevated. A Covid test was performed and was negative. At the time of admission the patient was noted to be markedly hypertensive with systolic blood pressures greater than 220. There is also some apparent witnessed seizure activity. Since admission the medical service is taken measures to correct her blood pressure. An EEG was performed that did not show any evidence of seizure activity. She has been placed on an insulin drip due to her hyperglycemia. At the time of my exam the patient was coherent, alert and oriented x3, was in no pain, and was in no distress. Allergies Allergy/AdvReac Type Severity Reaction Status Date / Time No Known Allergies Allergy Unverified 08/31/20 06:40 Home Medications Medication Instructions Recorded Confirmed Type No Known Home Medications 08/31/20 08/31/20 History Patient History Medical History Acute cholecystitis Diabetes mellitus type 2 in nonobese Hypertensive urgency Prolonged Q-T interval on ECG Tobacco abuse Transaminitis Surgical History No significant past surgical history Family History Other Family history non-contributory Social History Smoking Status: Current every day smoker Tobacco Type: Cigarettes packs per day: 0.5; Hx Alcohol Use: No Hx Substance Use: No Preferred Language: Azeri Instructional Resource Teacher Required: No Beliefs That Will Affect Care: Amish Amish Beliefs: Amish Current Living Situation: Spouse and Family Current Living Situation Comment: lives with and daughter Other Information That Helps Us Care for You: No Feels Safe at Home: Yes Safety Concerns: Feels Safe At This Time Assistive Devices: Glasses Review of Systems Constitutional: no fever and no chills Eyes: no diplopia Ear, Nose, Mouth, Throat: no ear pain Respiratory: no cough and no dyspnea Cardiovascular: no chest pain Gastrointestinal: + abdominal pain, + nausea and + vomiting Genitourinary: no dysuria Musculoskeletal: no back pain Integumentary: no rash Neurologic: + seizure-like activity (Reported by admitting service); no localized weakness Physical Exam Constitutional: well developed and well nourished; no acute distress Eyes: no conjunctival abnormality Wears glasses ENMT: Ears: no hearing impairment Neck: trachea midline Respiratory: normal respiratory effort, lungs clear to auscultation Cardiovascular: Rate/Rhythm: regular rate and regular rhythm Gastrointestinal (Abdomen): Abdomen is soft and nondistended. Bowel sounds are present. There is no rebound tenderness or guarding. Patient had minimal pain with very deep palpation of the right upper quadrant. Traylor sign was noted to be negative. Musculoskeletal: No calf pain Skin: no rashes, warm and dry Neurologic: CN's II-XI intact bilaterally and moves all extremities Psychiatric: A+Ox3, euthymic affect Results & Data ([facility]) Vital Signs (Past 12 Hours) Vital Signs Temp Pulse Pulse Resp BP BP Pulse Ox 08/31/20 15:20 37.0 C 80 16 128/63 98 08/31/20 14:56 100 H 08/31/20 12:00 36.5 C 89 18 132/64 99 08/31/20 09:44 36.3 C L 85 16 123/76 99 08/31/20 09:43 85 08/31/20 09:00 74 30 H 117/69 08/31/20 08:52 75 31 H 101/60 08/31/20 08:45 71 28 H 88/51 L 98 08/31/20 08:30 84 23 133/77 98 08/31/20 08:15 87 22 215/99 H 97 08/31/20 08:00 81 24 208/105 H 97 PG Care Time/CCT Total # of Minutes Spent Total Time Spent with Patient: Total time spent is greater than 50% in coordination of care (as documented) at patient's floor/unit and/or counseling patient: Coding Level of Care Code 73718 Inpt Consult Level 5 Diagnoses Acute cholecystitis K81.0
[2020-08-31] MEDS: cefOXitin 2,000 MG in DEXTROSE 5% 50 ML IV SCH (21:00)
[2020-08-31 21:02] LABS: BUN Creatinine Ratio 44.5 (10-20); Calcium 9.1 mg/dl (8.5-10.1); Creatinine Clr Calc Pharmacy 90.9 ml/min; Est GFR (African American) 109.3; Est GFR (Non-African American) 94.3; Magnesium 2.4 mg/dl (1.8-2.4); Potassium 3.6 mmol/L (3.5-5.1)
[2020-08-31 21:03] LABS: Phosphorus 2.3 mg/dl (2.5-4.9)
--- NOTE | 2020-08-31 22:22 | Hospitalist Progress Note ---
Date of Service August 31, 2020 Assessment & Plan Admission and Anticipated Discharge Date Admission Date: August 31, 2020 Results & Data Results & Data ([facility]) Vital Signs (Past 12 Hours) Vital Signs Temp Pulse Pulse Resp BP Pulse Ox 08/31/20 15:20 37.0 C 80 16 128/63 98 08/31/20 14:56 100 H 08/31/20 12:00 36.5 C 89 18 132/64 99 PG Care Time/CCT Total # of Minutes Spent Total Time Spent with Patient: Total time spent is greater than 50% in coordination of care (as documented) at patient's floor/unit and/or counseling patient: Coding
[2020-09-01 01:34] LABS: BUN Creatinine Ratio 53.3 (10-20); Creatinine Clr Calc Pharmacy 105.8 ml/min; Est GFR (African American) 114.9; Est GFR (Non-African American) 99.1; Magnesium 2.3 mg/dl (1.8-2.4); Phosphorus 2.8 mg/dl (2.5-4.9); Potassium 3.7 mmol/L (3.5-5.1)
[2020-09-01] MEDS: NSS + 20MEQ KCL 20 MEQ/1,000 ML BAG IV SCH ×4 (01:52→22:46)
[2020-09-01] MEDS: cefOXitin 2,000 MG in DEXTROSE 5% 50 ML IV SCH ×4 (02:54→21:11)
[2020-09-01 05:16] LABS: BUN Creatinine Ratio 54.9 (10-20); Calcium 8.6 mg/dl (8.5-10.1); Creatinine Clr Calc Pharmacy 121.2 ml/min; Est GFR (African American) 120.1; Est GFR (Non-African American) 103.7; Magnesium 2.2 mg/dl (1.8-2.4); Phosphorus 3.1 mg/dl (2.5-4.9); Potassium 3.6 mmol/L (3.5-5.1)
[2020-09-01] MEDS: HEPARIN SOD 5,000 UNIT/0.5 ML VIAL SQ SCH ×3 (05:25→21:12)
[2020-09-01] MEDS ORDERED: INSULIN GLARGINE SOLOSTAR 100 UNITS/ML 3 ML PEN SC ONE (08:00)
[2020-09-01 09:07] LABS: Albumin Level 2.7 gm/dl (3.4-5.0); Bilirubin Direct 0.3 mg/dl (0-0.2); Bilirubin,Total 0.8 mg/dl (0.2-1); Total Protein 6.1 gm/dl (6.4-8.2)
--- NOTE | 2020-09-01 09:23 | Surgery Progress Note ---
Date of Service September 01, 2020 Assessment & Plan (1) Acute cholecystitis: Patient here with abdominal pain, found to have evidence concerning for acute cholecystitis on RUQ US Patient says her abdominal symptoms have improved since admission, she has been NPO Today LFT's downtrending, Tb: 0.8, Db: 0.3, AST: 13, ALT: 190, AlkP: 175 On examination patient's abdomen is soft with mild discomfort to palpation in the RUQ Hospitalists are working on optimizing patient for her other medical issues including DM, HTN, possible seizure Continue IV abx, NPO at midnight Pending medicine clearance we can consider booking patient for the OR tomorrow for laparoscopic cholecystectomy Admission and Anticipated Discharge Date Admission Date: August 31, 2020 Supervising Physician Co-Signing Physician Notes Patient seen and examined, labs and imaging reviewed, agree with above. 64-year-old female admitted with abdominal pain, DKA and hypertensive crisis. Found to have evidence of cholecystitis on ultrasound. She endorses 1 week history of right upper quadrant abdominal pain that started about an hour after eating Aniket Hussain sausage sandwich. On exam afebrile, stable vitals. Abdomen soft, tender to palpation with deep palpation in the right upper quadrant, negative Traylor sign. Labs reviewed, downtrending LFTs and normal WBC. Ultrasound showed cholelithiasis with thickened gallbladder wall and pericholecystic fluid indicative of cholecystitis. We will plan for laparoscopic cholecystectomy with possible cholangiogram during this stay. She needs to be medically optimized and we have addressed this with the primary team. Potential OR tomorrow. She can have clear liquids this afternoon from general surgery standpoint, n.p.o. after midnight. Continue antibiotics. Plan for laparoscopic cholecystectomy with possible cholangiogram, possible tomorrow Risk the procedure were discussed to include but not limited to bleeding, infec tion, retained stone, conversion open, damage to structures, need for future more extensive surgery, and the risk of anesthesia Continue antibiotics Clear liquids okay today from surgery standpoint, n.p.o. after midnight Awaiting medical clearance Subjective Patient doing fairly well this AM. She denies any abdominal pain/n/v. Physical Exam Physical Exam: awake/alert Respiratory: normal respiratory effort Gastrointestinal (Abdomen): Inspection/Auscultation: abdomen not distended Percussion/Palpation: + abdomen tender (mild discomfort to palpation in the RUQ) and abdomen soft Results & Data ([facility]) Vital Signs (Past 12 Hours) Vital Signs Temp Pulse Resp BP Pulse Ox 09/01/20 07:40 37.1 C 108 H 20 175/93 H 97 09/01/20 03:22 36.8 C 113 H 20 176/84 H 97 08/31/20 23:04 36.8 C 92 H 18 159/83 H 96 PG Care Time/CCT Total # of Minutes Spent Total Time Spent with Patient: Total time spent is greater than 50% in coordination of care (as documented) at patient's floor/unit and/or counseling patient: Coding Level of Care Code 13874 Subseq Hosp Care Lvl 1 Diagnoses Acute cholecystitis K81.0
[2020-09-01] MEDS: DC IV INSULIN INFUSION 1 EA DEVI SCH ×2 (10:11→14:35)
--- NOTE | 2020-09-01 10:22 | Gastrointestinal Consultation ---
Date of Consultation September 01, 2020 Assessment & Plan (1) Acute cholecystitis: US indicates acute cholecystitis with cholelithiasis. LFTs are improving. Normal bile duct on imaging. -Trend LFTs -Proceed with general surgery plans for cholecystectomy when able -Continue IV antibiotics Thank you for allowing us to participate in the care of this patient. If you should have any further questions or concerns, do not hesitate to contact us at extension [phone] or [phone]. Supervising Physician Co-Signing Physician Notes I personally evaluated the patient and agree with the findings as documented by Malathi Arizmendi, PAC Exam: abd: soft, mild epigastric tenderness, nd continue abx, CCY as per surgery. No indication for ERCP at this time. History of Present Illness Reason for Consultation: Acute cholecystitis Attending Physician: Jean Pierre Vital History of Present Illness Patient is a 64 yo female who presented to the ED at [facility] with ongoing abdominal discomfort & nausea. She notes her symptoms began on Sunday. She reports that she tried to ignore them, but eventually felt like she needed to seek evaluation. She is a suboptimally controlled diabetic per her reports. She noticed her blood sugars were not in a good range. She reports that the abdominal discomfort began increasing. She denied fever or chills. She denies jaundice or pruritus. Upon arrival, she underwent an US that indicated acute cholecystitis with ch olelithiasis. Common bile duct was within normal limits. Blood glucose was poorly controlled. Her LFTs were elevated with a T Bili of 1.5 along with AST & ALT evaluation, however since admission her T bili is now 0.8, D bili is 0.3, AST 13 and ALT 190. Allergies Allergy/AdvReac Type Severity Reaction Status Date / Time No Known Allergies Allergy Unverified 08/31/20 06:40 Home Medications Medication Instructions Recorded Confirmed Type No Known Home Medications 08/31/20 08/31/20 History Patient History Medical History (Updated 09/01/20 @ 15:52 by Nick Girard MD) Acute cholecystitis Anemia Diabetes mellitus type 2 in nonobese Hypertensive urgency Prolonged Q-T interval on ECG Smoker Tobacco abuse Transaminitis Surgical History No significant past surgical history Family History Other Family history non-contributory Social History Smoking Status: Current every day smoker Tobacco Type: Cigarettes packs per day: 0.5; Hx Alcohol Use: No Hx Substance Use: No Preferred Language: Bur[place]ian Communication Ability: Effective Personnel Recruiter Required: No Beliefs That Will Affect Care: Nondenominational Nondenominational Beliefs: Rastafari Current Living Situation: Spouse and Family Current Living Situation Comment: lives with and daughter Other Information That Helps Us Care for You: No Feels Safe at Home: Yes Safety Concerns: Feels Safe At This Time Assistive Devices: None Review of Systems Constitutional: no fever and no chills Cardiovascular: no chest pain Gastrointestinal: + abdominal pain and + nausea vomiting resolved Psychiatric: no problem reported Physical Exam Constitutional: well developed Respiratory: normal respiratory effort Cardiovascular: Extremities: no edema Gastrointestinal (Abdomen): Inspection/Auscultation: abdomen normal to inspection Musculoskeletal: Head/Neck/Chest: normocephalic Psychiatric: A+Ox3, euthymic affect Results & Data ([facility]) Vital Signs (Past 12 Hours) Vital Signs Temp Pulse Resp BP Pulse Ox 09/01/20 07:40 37.1 C 108 H 20 175/93 H 97 09/01/20 03:22 36.8 C 113 H 20 176/84 H 97 08/31/20 23:04 36.8 C 92 H 18 159/83 H 96 PG Care Time/CCT Total # of Minutes Spent Total Time Spent with Patient: Total time spent is greater than 50% in coordination of care (as documented) at patient's floor/unit and/or counseling patient: Coding Level of Care Code 02677 Inpt Consult Level 4 Diagnoses Acute cholecystitis K81.0
[2020-09-01] MEDS ORDERED: INSULIN ASPART 100 UNITS/ML 3 ML PEN SC SCH (11:30)
[2020-09-01 12:39] LABS: Hematocrit (blood only) 28.2 % (37-47); Hemoglobin 9.9 g/dL (12.0-16.0); Mean Corpuscular Hemoglobin 29.5 pg (25-34); Mean Corpuscular Hgb Conc 35.1 g/dL (32-36); Mean Corpuscular Volume 83.9 fL (80-100); Mean Platelet Volume 11.6 fL (7.4-10.4); Platelet Count 222 K/uL (130-400); RDW Coefficient of Variation 13.4 % (11.5-14.5); RDW Standard Deviation 40.8 fL (36.4-46.3); Red Blood Count 3.36 M/uL (4.2-5.4); White Blood Count 18.35 K/uL (4.8-10.8)
[2020-09-01 14:26] LABS: Basophils # (auto) 0.01 K/uL (0-0.2); Basophils % (auto) 0.1 %; Eosinophils # (auto) 0.01 K/uL (0-0.5); Eosinophils % (auto) 0.1 %; Immature Granulocytes # (auto) 0.07 K/uL (0.00-0.02); Immature Granulocytes % (auto) 0.4 %; Lymphocytes # (auto) 1.67 K/uL (1.2-3.4); Lymphocytes % (auto) 9.1 %; Monocytes # (auto) 1.01 K/uL (0.11-0.59); Monocytes % (auto) 5.5 %; Neutrophils # (auto) 15.58 K/uL (1.4-6.5); Neutrophils % (auto) 84.8 %; Toxic Vacuolation 1+
--- NOTE | 2020-09-01 14:50 | Pharmacy Report ---
Pharmacy Glycemic Short Note 2 - Date of Service September 01, 2020 - Glycemic Short BSG Results (Last 24 hours): 08/31/20 08/31/20 08/31/20 15:17 16:17 16:47 Glucose 306 H* POC Glucose 426 H* 364 H* 08/31/20 08/31/20 08/31/20 17:03 18:02 19:14 Glucose POC Glucose 295 H 278 H 255 H 08/31/20 08/31/20 08/31/20 20:13 20:33 21:23 Glucose 189 H POC Glucose 213 H 183 H 08/31/20 08/31/20 09/01/20 22:23 23:50 00:39 Glucose 114 H POC Glucose 168 H 132 H 09/01/20 09/01/20 09/01/20 00:50 01:50 02:48 Glucose POC Glucose 121 H 114 H 122 H 09/01/20 09/01/20 09/01/20 04:08 04:43 05:20 Glucose 115 H POC Glucose 124 H 132 H 09/01/20 09/01/20 09/01/20 06:34 07:33 09:03 Glucose POC Glucose 126 H 115 H 111 H 09/01/20 09/01/20 10:06 11:53 Glucose POC Glucose 106 H 111 H OUTPATIENT ANTIDIABETIC REGIMEN: * N/A * HbA1C = 8.9% (08/31/20) ASSESSMENT: 09/02: * Patient was weaned off insulin drip this morning. She received an average of around 60 units over 24 hrs via insulin drip plus 12 units of Lantus yesterday AM. 50% of the average total daily dose was given via Lantus this morning. * Pt continues to be NPO. Novolog CF ordered based on wt and stress of 3 starting around noon today. 09/01 * Ms Willson is a 64 y/o F with a new diagnosis of T2DM who presents with abdominal pain. Blood sugars were elevated on admission at 375 mg/dL. * Patient is NPO for abdominal pain. * Discussed patient with admitting PA, due to patient's potassium of 3.3 ... will hold off on IV insulin. IV potassium replacement ordered. * Aggressive SQ insulin ordered with 0.1 unit/kg q2 hours until BSG < 200 mg/dL. Then start weight-based stress of 3 Novolog q4 hours. (CF 25 CR 8 with goal range of 110-140 mg/dL). * Give full weight-based stress of 1 Lantus dose. Conservative due to NPO status. PLAN FOR INPATIENT GLYCEMIC CONTROL: * Basal insulin * Lantus 30 units SQ x 1 today AM. * Bolus insulin: Q6h and 0400 AM check * Novolog goal 120 - 150 mg/dl * Correction Factor: 25 * Carb Ratio: 1 unit for every 8 gms of carbs consumed. PLAN FOR DISCHARGE: * TBD
--- NOTE | 2020-09-01 15:48 | Anesthesiology Consultation ---
Date of Service September 01, 2020 The patient was admitted on 08/31/20 after presenting with abdominal pain. She was found to have acute cholecystitis, DKA, and was in a hypertensive crisis. She also possibly had a brief seizure but was not thought to require seizure precautions. Her blood glucose and blood pressure have been treated over the past two days and her electrolytes have been corrected. She remains anemic and has an elevated WBC count. Medicine is following the patient and will determine if she is optimized for surgery. Assessment & Plan (1) Encounter for pre-operative examination: Chart Review Chart Review: Pending: Refer to Additional Notes / Consult section (medicine is making sure patient is optimized for surgery) and Patient NOT seen in Pre Admiss ion Testing Consults Requested medicine is following the patient History Surgery Operation Date: 09/02/20 12:10 Proposed Procedures p Laparoscopic Cholecystectomy, Possible Cholangiogram - Nate Bush DO, FACS Height/Weight Height: 5 ft 6 in Weight: 73.2 kg Allergies Allergy/AdvReac Type Severity Reaction Status Date / Time No Known Allergies Allergy Unverified 08/31/20 06:40 Medications Home Medications Medication Instructions Recorded Confirmed Last Taken No Known Home Medications 08/31/20 08/31/20 Unknown Active Medications Generic Name Dose Route Start Last Admin Trade Name Freq PRN Reason Stop Dose Admin Heparin Sodium (Porcine) 5,000 units 08/31/20 14:00 09/01/20 14:13 Heparin Sod 5,000 Unit/0.5 Ml Vial SQ 09/30/20 13:59 Not Given Q8 JAMES Potassium Chloride/Sodium Chloride 20 meq in 1,000 mls @ 150 mls/hr 08/31/20 10:15 09/01/20 14:39 Normal Saline W/20 Meq Kcl IV 09/30/20 09:42 150 mls/hr .Q6H40M JAMES Administration Protocol Cefoxitin Sodium 2,000 mg/ 60 mls @ 100 mls/hr 08/31/20 21:00 09/01/20 15:01 Dextrose IV 09/10/20 20:59 100 mls/hr Q6H JAMES Administration Past Medical History Medical History (Updated 09/01/20 @ 15:52 by Nick Girard MD) Acute cholecystitis Anemia Diabetes mellitus type 2 in nonobese Hypertensive urgency Prolonged Q-T interval on ECG Smoker Tobacco abuse Transaminitis Past Family History Family History Other Family history non-contributory Past Surgical History Surgical History No significant past surgical history Social History Smoking Status: Current every day smoker tobacco type: cigarettes Hx Alcohol Use: No Hx Substance Use: No substance use type: does not use Physical Exam Vital Signs Last Vital Signs Temp 37.1 C 09/01/20 10:57 Pulse 102 H 09/01/20 10:57 Resp 18 09/01/20 10:57 BP 159/71 H 09/01/20 10:57 Pulse Ox 96 09/01/20 10:57 Testing Laboratory Results 09/01/20 04:51 09/01/20 04:43 Hemoglobin A1c 8.9 % (4.5-5.6) H 08/31/20 08:59 Urine Color Dark Yellow 08/31/20 05:45 Urine Appearance Clear (Clear) 08/31/20 05:45 Urine pH 5.5 (4.5-7.5) 08/31/20 05:45 Ur Specific [place] 1.034 (1.000-1.030) H 08/31/20 05:45 Urine Protein 4+ (Negative) H 08/31/20 05:45 Urine Glucose (UA) 3+ (Negative) H 08/31/20 05:45 Urine Ketones 3+ (Negative) H 08/31/20 05:45 Urine Nitrite Negative (Negative) 08/31/20 05:45 Ur Leukocyte Esterase Negative (Negative) 08/31/20 05:45 Urine WBC (Auto) 1-5 /hpf (0-5) 08/31/20 05:45 Urine RBC (Auto) 10-30 /hpf (0-4) H 08/31/20 05:45 U Hyaline Cast (Auto) 1-5 /lpf (0-5) 08/31/20 05:45 U Epithel Cells (Auto) >30 /lpf (0-5) H 08/31/20 05:45 Urine Bacteria (Auto) Negative (Negative) 08/31/20 05:45 09/01/20 09/01/20 09/01/20 11:53 10:06 09:03 POC Glucose 111 H 106 H 111 H 09/01/20 09/01/20 09/01/20 07:33 06:34 05:20 POC Glucose 115 H 126 H 132 H 09/01/20 04:08 POC Glucose 124 H Electrocardiogram Date: 08/31/20 Findings: + ST @ (112) PSVCs noted Echocardiogram Date: 08/31/20 EF: 65-70 Other Findings: + LVH (moderate concentric) Valvular Disease: + no significant valvular disease
--- NOTE | 2020-09-01 16:11 | Electrocardiogram Report ---
Test Reason : Blood Pressure : / mmHG Vent. Rate : 112 BPM Atrial Rate : 112 BPM P-R Int : 152 ms QRS Dur : 084 ms QT Int : 332 ms P-R-T Axes : 072 017 002 degrees QTc Int : 453 ms Poor data quality, interpretation may be adversely affected Sinus tachycardia with Premature ventricular complexes Otherwise normal ECG When compared with ECG of 31-AUG-2020 05:53, Premature ventricular complexes are now Present T wave inversion more evident in Inferior leads Confirmed by Elia Woodson ([id number]) on 09/01/2020 4:10:52 PM Referred By: REFERRED SELF Confirmed By:Elia Woodson
[2020-09-01] MEDS: INSULIN ASPART 100 UNITS/ML 3 ML PEN SC SCH (18:07)
--- NOTE | 2020-09-01 22:05 | Hospitalist Progress Note ---
Date of Service September 01, 2020 Assessment & Plan (1) Acute cholecystitis: Consulted surgery. will likely have cholescystectomy in AM. Patient is cleared medically for surgery. (2) Diabetes mellitus type 2 in nonobese: Patient reported prior history of diabetes but was taken off her Metformin greater than 4 years ago Hemoglobin A1c is 8.9% Patient treated for DKA. Anion gap is now closed, now on subcu insulin. (3) Seizure: Patient has no history of seizure in the past During my examination the patient had what appeared to be a seizure event where her eyes rolled up and patient was unresponsive for 10 to 20 seconds. Patient then had somewhat of a post ictal haze for several seconds EEG was negative for epileptical waveforms. We will discontinue seizure precautions (4) Hypertensive urgency: Systolic pressure 238 on my initial visit Patient received labetalol 10 mg IV x2 and systolic blood pressure dropped to 88 mmHg Hold on further antihypertensives at this time Continue with IV hydration Treat underlying hyperglycemia (5) Hypokalemia: Initial hemoglobin 3.1 Currently hemoglobin is going up nicely at 3.3 and then 3.5 Magnesium is being repleted Continue to follow serial labs every 4 hours for now (6) Transaminitis: Patient denies heavy alcohol consumption No prior liver disease Ultrasound of abdomen shows echogenic liver suggestive of hepatic steatosis Continue with IV hydration and follow serial labs (7) Hyponatremia: Sodium is slightly low at 134 mmol/L Received 1 L of normal saline in the emergency department Continuing normal saline with 20 mEq of potassium at 200 mL/h Follow serial labs Patient alert and oriented (8) Tobacco abuse: Patient currently smokes 1/2 pack/day Deferring on NicoDerm patch Patient did have a period where she quit smoking but started smoking again 7 or 8 years ago Counseled on complete abstention Smoking cessation order placed (9) Prolonged Q-T interval on ECG: Normal sinus rhythm on EKG with no other significant abnormalities Echocardiogram ordered Check serial EKGs in the morning No chest pain or tightness Monitor on telemetry (10) DVT prophylaxis: No chemical prophylaxis at this time SCD knee-high's ordered CARITO hose ordered Admission and Anticipated Discharge Date Admission Date: August 31, 2020 Subjective Patient reports feeling better. She has no new complaints. Review of Systems Review of Systems: All systems reviewed & are unremarkable except as noted in HPI & below Physical Exam Physical Exam: GENERAL : No acute distress. Patient appears comfortable. EYES: No icterus, gaze conjugate. Pupils equal round and reactive to light NOSE: No evidence of epistaxis MOUTH: No lesions or candidiasis. Mucosa dry NECK: Supple. No stridor or bruits appreciated LUNGS: CTA B/L, no wheezes, rales or rhonchi HEART: Regular, rate controlled ABDOMEN: Soft, NT, ND, BS Present. No rebound tenderness. No guarding. EXTREMITIES: No LE edema, pedal pulses intact NEURO: A&OX3. Results & Data Results & Data ([facility]) Vital Signs (Past 12 Hours) Vital Signs Temp Pulse Resp BP BP Pulse Ox 09/01/20 17:06 36.7 C 100 H 19 187/95 H 184/93 H 96 09/01/20 10:57 37.1 C 102 H 18 159/71 H 96 PG Care Time/CCT Total # of Minutes Spent Total Time Spent with Patient: Total time spent is greater than 50% in coordination of care (as documented) at patient's floor/unit and/or counseling patient: Coding Level of Care Code 86857 Subseq Hosp Care Lvl 3 Diagnoses Acute cholecystitis K81.0 Diabetes mellitus type 2 in nonobese E11.9 Seizure R56.9 Hypertensive urgency I16.0 Hypokalemia E87.6 Transaminitis R74.01 Hyponatremia E87.1 Tobacco abuse Z72.0 Prolonged Q-T interval on ECG R94.31 DVT prophylaxis Z29.9 Time Spent (min) 35
[2020-09-02] MEDS: INSULIN ASPART 100 UNITS/ML 3 ML PEN SC SCH ×5 (00:37→20:18)
[2020-09-02] MEDS: cefOXitin 2,000 MG in DEXTROSE 5% 50 ML IV SCH ×4 (03:11→21:15)
[2020-09-02] MEDS ORDERED: INSULIN ASPART 100 UNITS/ML 3 ML PEN SC ONE (04:00)
[2020-09-02] MEDS: NSS + 20MEQ KCL 20 MEQ/1,000 ML BAG IV SCH ×2 (05:34→16:06)
[2020-09-02] MEDS: HEPARIN SOD 5,000 UNIT/0.5 ML VIAL SQ SCH ×2 (05:36→16:06)
[2020-09-02 07:38] LABS: Hematocrit (blood only) 27.9 % (37-47); Hemoglobin 9.7 g/dL (12.0-16.0); Mean Corpuscular Hemoglobin 29.4 pg (25-34); Mean Corpuscular Hgb Conc 34.8 g/dL (32-36); Mean Corpuscular Volume 84.5 fL (80-100); Mean Platelet Volume 10.3 fL (7.4-10.4); Platelet Count 209 K/uL (130-400); RDW Coefficient of Variation 13.4 % (11.5-14.5); RDW Standard Deviation 41.1 fL (36.4-46.3); White Blood Count 10.82 K/uL (4.8-10.8)
[2020-09-02] MEDS ORDERED: INSULIN GLARGINE SOLOSTAR 100 UNITS/ML 3 ML PEN SC ONE (08:15)
[2020-09-02 08:22] LABS: Albumin Level 2.9 gm/dl (3.4-5.0); BUN Creatinine Ratio 18.9 (10-20); Bilirubin Direct 0.3 mg/dl (0-0.2); Bilirubin,Total 0.9 mg/dl (0.2-1); Calcium 8.6 mg/dl (8.5-10.1); Creatinine Clr Calc Pharmacy 121.2 ml/min; Est GFR (African American) 120.1; Est GFR (Non-African American) 103.7; Potassium 3.4 mmol/L (3.5-5.1); Total Protein 6.2 gm/dl (6.4-8.2)
--- NOTE | 2020-09-02 10:22 | Pharmacy Report ---
Pharmacy Glycemic Short Note 2 - Date of Service September 02, 2020 - Glycemic Short BSG Results (Last 24 hours): 09/01/20 09/01/20 09/02/20 11:53 16:48 00:31 Glucose POC Glucose 111 H 103 H 132 H 09/02/20 09/02/20 09/02/20 04:15 06:09 07:00 Glucose 118 H POC Glucose 122 H 136 H 09/02/20 07:12 Glucose POC Glucose 128 H OUTPATIENT ANTIDIABETIC REGIMEN: * N/A * HbA1C = 8.9% (08/31/20) ASSESSMENT: 09/02: * Patient transitioned off of insulin drip well over past 24 hours, blood sugars at goal. * Will give smaller dose of Lantus this morning to prevent hypoglycemia, patient NPO for lap kyle today. * May need to increase Lantus tomorrow morning as diet advances, A1c 8.9% 09/01: * Patient was weaned off insulin drip this morning. She received an average of around 60 units over 24 hrs via insulin drip plus 12 units of Lantus yesterday AM. 50% of the average total daily dose was given via Lantus this morning. * Pt continues to be NPO. Novolog CF ordered based on wt and stress of 3 starting around noon today. 08/31 * Ms Willson is a 64 y/o F with a new diagnosis of T2DM who presents with abdominal pain. Blood sugars were elevated on admission at 375 mg/dL. * Patient is NPO for abdominal pain. * Discussed patient with admitting PA, due to patient's potassium of 3.3 ... will hold off on IV insulin. IV potassium replacement ordered. * Aggressive SQ insulin ordered with 0.1 unit/kg q2 hours until BSG < 200 mg/dL. Then start weight-based stress of 3 Novolog q4 hours. (CF 25 CR 8 with goal range of 110-140 mg/dL). * Give full weight-based stress of 1 Lantus dose. Conservative due to NPO status. PLAN FOR INPATIENT GLYCEMIC CONTROL: * Basal insulin * Lantus 20 units SQ x 1 today AM. * Bolus insulin: Q6h while NPO, ACHS when eating * Novolog goal 120 - 150 mg/dl * Correction Factor: 25 * Carb Ratio: 1 unit for every 8 gms of carbs consumed. PLAN FOR DISCHARGE: * TBD, A1c 8.9%, new DM Diagnosis
[2020-09-02] MEDS ORDERED: MIDAZOLAM HCL 1 MG/ML 2ML VIAL ONE (12:13)
[2020-09-02] MEDS ORDERED: ONDANSETRON INJ 2 MG/ML 2 ML VIAL ONE (12:13)
[2020-09-02] MEDS ORDERED: ROCURONIUM BROMIDE 10 MG/ML 5 ML VIAL IV ONE (12:13)
[2020-09-02] MEDS ORDERED: LIDOCAINE HCL 2% 2 ML VIAL/AMP(20MG/ML) INFIL ONE (12:13)
[2020-09-02] MEDS ORDERED: PROPOFOL IV EMULSION 10 MG/ML 20 ML VIAL IV ONE (12:13)
[2020-09-02] MEDS ORDERED: fentaNYL citrate 100 MCG/2 ML VIAL ONE (12:13)
--- NOTE | 2020-09-02 12:23 | Surgery Progress Note ---
Date of Service September 02, 2020 Assessment & Plan (1) Acute cholecystitis: 64-year-old female with acute cholecystitis, sugars better controlled and hypertensive urgency improved Plan for laparoscopic cholecystectomy with possible cholangiogram today in the operating room Risk the procedure were again reviewed to include but not limited to bleeding, infection, conversion open, retained stone, bile leak, damage surrounding structures including common bile duct, need for future more extensive surgery, and the risk of anesthesia (2) Hypertensive urgency: (3) Diabetes mellitus type 2 in nonobese: Admission and Anticipated Discharge Date Admission Date: August 31, 2020 Subjective 64-year-old female with cholelithiasis and suspected cholecystitis admitted DKA. Her sugars have been well controlled. Scheduled for surgery this afternoon. No significant overnight events. Physical Exam Constitutional: WD/WN, vitals as above Gastrointestinal (Abdomen): normal bowel sounds, soft, nontender, no hepatosplenomegaly Results & Data ([facility]) Vital Signs (Past 12 Hours) Vital Signs Temp Pulse Resp BP Pulse Ox 09/02/20 11:07 37 C 96 H 18 186/93 H 96 09/02/20 07:07 36.8 C 91 H 18 174/80 H 97 Laboratory Results Laboratory Results - last 24 hr 09/01/20 09/01/20 09/02/20 04:51 16:48 00:31 WBC 18.35 H RBC 3.36 L Hgb 9.9 L D Hct 28.2 L MCV 83.9 MCH 29.5 MCHC 35.1 RDW Std Deviation 40.8 RDW Coeff of Ramiro 13.4 Plt Count 222 MPV 11.6 H Immature Gran % (Auto) 0.4 Neut % (Auto) 84.8 Lymph % (Auto) 9.1 [place] % (Auto) 5.5 Eos % (Auto) 0.1 Baso % (Auto) 0.1 Neut # (Auto) 15.58 H Lymph # (Auto) 1.67 [place] # (Auto) 1.01 H Eos # (Auto) 0.01 Baso # (Auto) 0.01 Immature Gran # (Auto) 0.07 H Toxic Vacuolation 1+ Sodium Potassium Chloride Carbon Dioxide Anion Gap BUN Creatinine Est Cr Clr Drug Dosing Est GFR ( Amer) Est GFR (Non-Af Amer) BUN/Creatinine Ratio Glucose POC Glucose 103 H 132 H Calcium Total Bilirubin Direct Bilirubin AST ALT Alkaline Phosphatase Total Protein Albumin 03/11/21 03/11/21 03/11/21 04:15 06:09 07:00 WBC 10.82 H RBC 3.30 L Hgb 9.7 L Hct 27.9 L MCV 84.5 MCH 29.4 MCHC 34.8 RDW Std Deviation 41.1 RDW Coeff of Ramiro 13.4 Plt Count 209 MPV 10.3 Immature Gran % (Auto) Neut % (Auto) Lymph % (Auto) [place] % (Auto) Eos % (Auto) Baso % (Auto) Neut # (Auto) Lymph # (Auto) [place] # (Auto) Eos # (Auto) Baso # (Auto) Immature Gran # (Auto) Toxic Vacuolation Sodium Potassium Chloride Carbon Dioxide Anion Gap BUN Creatinine Est Cr Clr Drug Dosing Est GFR ( Amer) Est GFR (Non-Af Amer) BUN/Creatinine Ratio Glucose POC Glucose 122 H 136 H Calcium Total Bilirubin Direct Bilirubin AST ALT Alkaline Phosphatase Total Protein Albumin 09/02/20 09/02/20 09/02/20 07:00 07:12 11:39 WBC RBC Hgb Hct MCV MCH MCHC RDW Std Deviation RDW Coeff of Ramiro Plt Count MPV Immature Gran % (Auto) Neut % (Auto) Lymph % (Auto) [place] % (Auto) Eos % (Auto) Baso % (Auto) Neut # (Auto) Lymph # (Auto) [place] # (Auto) Eos # (Auto) Baso # (Auto) Immature Gran # (Auto) Toxic Vacuolation Sodium 139 Potassium 3.4 L Chloride 107 Carbon Dioxide 26 Anion Gap 6.0 BUN 9 D Creatinine 0.48 L Est Cr Clr Drug Dosing 121.2 Est GFR ( Amer) 120.1 Est GFR (Non-Af Amer) 103.7 BUN/Creatinine Ratio 18.9 Glucose 118 H POC Glucose 128 H 108 H Calcium 8.6 Total Bilirubin 0.9 Direct Bilirubin 0.3 H AST 17 ALT 130 H Alkaline Phosphatase 156 H Total Protein 6.2 L Albumin 2.9 L PG Care Time/CCT Total # of Minutes Spent Total Time Spent with Patient: Total time spent is greater than 50% in coordin ation of care (as documented) at patient's floor/unit and/or counseling patient: Coding Level of Care Code 79876 Inpt Consult Level 3 Diagnoses Acute cholecystitis K81.0 Hypertensive urgency I16.0 Diabetes mellitus type 2 in nonobese E11.9
[2020-09-02] MEDS ORDERED: BUPIVACAINE 0.5 % 5 MG/1 ML MPF 30ML VIAL ONE (12:38)
[2020-09-02] MEDS ORDERED: fentaNYL citrate 100 MCG/2 ML VIAL IV PRN (12:50)
[2020-09-02] MEDS ORDERED: ATROPINE SULFATE 0.1 MG/ML 10ML SYR IV PRN (12:50)
[2020-09-02] MEDS ORDERED: ePHEDrine sulfate 50 MG/ML AMP IV PRN (12:50)
[2020-09-02] MEDS ORDERED: ONDANSETRON INJ 2 MG/ML 2 ML VIAL IV PRN (12:50)
[2020-09-02] MEDS ORDERED: HYDROmorphone INJ 2 MG/ML SYR/VIAL IV PRN (12:50)
[2020-09-02] MEDS ORDERED: GLYCOPYRROLATE 0.2 MG/ML VIAL ONE (14:29)
[2020-09-02] MEDS ORDERED: NEOSTIGMINE METHYLSULFATE 5 MG/5 ML SYR ONE (14:29)
--- NOTE | 2020-09-02 14:44 | Operative Report ---
PG Post Operative Report Pre & Post Diagnosis Operation Date: 09/02/20 12:10 Pre-Op Diagnosis: Acute Cholecystitis Post-Op Diagnosis: Acute Cholecystitis, intraperitoneal hemorrhage I identified the patient and participated in the time-out.: Yes Procedure Operation Date: 09/02/20 12:10 Actual Procedures p Laparoscopic Cholecystectomy, diagnostic laparoscopy with washout (Not Applicable) - Nate Bush DO, CHELITA Surgeon Nate Bush DO, CHELITA Final Inspector Ki Cummings Estimated Blood Loss 150 Findings Consistent with Post-Op Diagnosis Upon entering the abdomen laparoscopically there was clotted blood in the right upper quadrant, left upper quadrant, and left pericolic gutter, along with the pelvis. There was no evidence of active bleeding. The gallbladder appeared minimally inflamed, critical view of safety obtained, cystic duct and artery doubly clipped and divided. Specimens Gallbladder Drains None Anesthesia Type General Complications none Disposition Accompanied Patient To Recovery: No Disposition: Recovery Room Indications 64-year-old female presented to the emergency department with abdominal pain. She was found to have cholelithiasis with concern for cholecystitis. She also was in hypertensive urgency and new onset diabetes with DKA. She was admitted to medicine resuscitated. Plan for laparoscopic cholecystectomy with possible cholangiogram. The risks of the procedure were discussed, all questions were answered, and the patient agreed to proceed with surgery as planned. Description of Procedure The patient was properly identified, consented, and taken to the operating room where she was placed in the supine position. General endotracheal anesthesia was induced. SCDs and a safety belt were placed. Preoperative antibiotics were administered. The patient's abdomen was prepped and draped in the standard sterile fashion. A surgical timeout was performed and all parties were in agreement that this was the correct patient and procedure to be performed and we continued as planned. An incision was made superior and to the left of the umbilicus overlying the rectus muscle and the Veress needle was inserted. Saline drop test confirmed entry into the peritoneum. The abdomen was insufflated with carbon dioxide which the patient tolerated without incident. The abdomen was then entered using the Optiview technique and a 5 mm trocar. The laparoscope was inserted and no damage from initial trocar or Veress needle placement was noted. Upon entering the abdomen there was noted to be blood-tinged peritoneum. There was also clot and old blood over the liver in the right upper quadrant, left upper quadrant overlying the spleen, the left paracolic gutter, and in the pelvis. An 11 mm port was placed in the subxiphoid position and two 5 mm ports were then placed in the right subcostal position. We reexamined the Veress needle site and port sites and there was no evidence of hemorrhage from any of these. The patient was placed in reverse Trendelenburg position and rotated towards the left. The gallbladder was mildly inflamed. The blood and fluid overlying the liver was suctioned and appeared to be mostly old clot with no active bleeding. The dome of the gallbladder was retracted towards the left upper quadrant and the infundibulum was retracted toward the right lower quadrant revealing Calot's triangle. Peritoneal attachments were taken down with electrocautery and blunt dissection. The cystic duct and artery were circumferentially dissected. A window of safety was obtained showing the cystic duct entering the gallbladder with no aberrant structures noted. The cystic duct and artery were doubly clipped and divided. The gallbladder was then lifted off the gallbladder fossa with electrocautery. The gallbladder was placed in an Endo Catch bag and removed through the subxiphoid port site. The right upper quadrant was irrigated and hemostasis was found to be good. We then continue to examine the abdomen. The left upper quadrant was suctioned and again revealed old blood and clot with no active bleeding. In the left paracolic gutter there was an old clot that we used an Endo Catch bag to remove. There was again no active bleeding. In the pelvis there was some reactive fluid and old blood with minimal clot. This was suctioned and no active bleeding was noted. All 4 quadrants of the abdomen were irrigated and no further bleeding was noted. Upon examination of the spleen, liver, pelvis, and remainder the abdomen there did not appear to be any obvious site of hemorrhage. As there was no continued bleeding we decided not to open and would monitor. 5 mm trochars were removed under direct visualization and the abdomen was allowed to collapse. The subxiphoid port site fascia was closed with 0 Vicryl suture with Nicholas-Elysia device. The wound was irrigated, and the skin of all ports was closed with 4-0 Monocryl subcuticular sutures. Dermabond was placed over the wounds. The patient was extubated in the operating room and taken to the PACU where she recovered without apparent incident. All sponge, instrument and needle counts were correct at the conclusion of the procedure. The patient tolerated the procedure well. The physician's assistant plant manager was present and scrubbed for the entirety of the case and was essential in positioning the patient, prepping and draping, retraction and exposure, driving the laparoscope, removal of the gallbladder, closure the incisions, and placement of the dressings. I attest to the content of the Intraoperative Record and any orders documented therein. Any exceptions are noted below.
--- NOTE | 2020-09-02 15:27 | Anesthesiology Progress Note ---
Date of Service September 02, 2020 Anesthesia Post Procedure Vital Signs Vital Signs: Temp Pulse Pulse Resp BP BP Pulse Ox 09/02/20 15:20 94 H 16 179/89 H 99 09/02/20 15:10 99 H 17 186/76 H 99 09/02/20 15:00 93 H 17 178/80 H 99 09/02/20 14:50 36.4 C L 83 14 159/74 H 100 09/02/20 12:29 36.8 C 91 H 18 168/83 H 97 09/02/20 11:07 37 C 96 H 18 186/93 H 96 09/02/20 07:07 36.8 C 91 H 18 174/80 H 97 09/01/20 22:21 37.0 C 104 H 18 186/87 H 96 09/01/20 17:06 36.7 C 100 H 19 187/95 H 184/93 H 96 Pain Intensity Abdomen: Pain Intensity: 0 Transfer of Care Handoff Completed per policy Notes Mental Status: alert / awake / arousable Patient Amnestic to Procedure: Yes Nausea / Vomiting: adequately controlled Pain: adequately controlled Airway Patency, RR, SpO2: stable & adequate BP & HR: stable & adequate Hydration State: stable & adequate Anesthetic Complications: no major complications apparent
[2020-09-02 15:34] LABS: Basophils # (auto) 0.02 K/uL (0-0.2); Basophils % (auto) 0.2 %; Eosinophils # (auto) 0.08 K/uL (0-0.5); Eosinophils % (auto) 0.6 %; Hematocrit (blood only) 27.7 % (37-47); Hemoglobin 9.6 g/dL (12.0-16.0); Immature Granulocytes # (auto) 0.06 K/uL (0.00-0.02); Immature Granulocytes % (auto) 0.5 %; Lymphocytes # (auto) 2.39 K/uL (1.2-3.4); Lymphocytes % (auto) 19.4 %; Mean Corpuscular Hemoglobin 29.7 pg (25-34); Mean Corpuscular Volume 85.8 fL (80-100); Mean Platelet Volume 9.6 fL (7.4-10.4); Monocytes # (auto) 0.88 K/uL (0.11-0.59); Monocytes % (auto) 7.1 %; Neutrophils # (auto) 8.92 K/uL (1.4-6.5); Neutrophils % (auto) 72.2 %; Platelet Count 207 K/uL (130-400); RDW Coefficient of Variation 13.3 % (11.5-14.5); RDW Standard Deviation 41.5 fL (36.4-46.3); Red Blood Count 3.23 M/uL (4.2-5.4); White Blood Count 12.35 K/uL (4.8-10.8)
[2020-09-02 15:44] LABS: Mean Corpuscular Hgb Conc 34.7 g/dL (32-36)
[2020-09-02 15:51] LABS: Prothrombin Time 10.3 Seconds (9.0-12.0)
[2020-09-02 15:54] LABS: BUN Creatinine Ratio 22.7 (10-20); Calcium 8.7 mg/dl (8.5-10.1); Creatinine Clr Calc Pharmacy 116.4 ml/min; Est GFR (African American) 118.5; Est GFR (Non-African American) 102.3; Potassium 3.6 mmol/L (3.5-5.1)
[2020-09-02] MEDS ORDERED: MoRPHine SULFATE 4 MG/ML 1 ML CARP\\VIAL IV PRN (16:02)
[2020-09-02] MEDS ORDERED: oxyCODONE/ACETAMINOPHEN 5mg/325mg TAB PO PRN (16:02)
[2020-09-02] MEDS ORDERED: MoRPHine SULFATE 2 MG/ML CARP IV PRN (16:02)
--- NOTE | 2020-09-02 16:29 | Electrocardiogram Report ---
Test Reason : Blood Pressure : / mmHG Vent. Rate : 092 BPM Atrial Rate : 092 BPM P-R Int : 156 ms QRS Dur : 078 ms QT Int : 376 ms P-R-T Axes : 077 056 064 degrees QTc Int : 464 ms Normal sinus rhythm Normal ECG When compared with ECG of 01-SEP-2020 06:49, Premature ventricular complexes are no longer Present T wave inversion no longer evident in Inferior leads Confirmed by Elia Woodson ([id number]) on 09/02/2020 4:29:44 PM Referred By: REFERRED SELF Confirmed By:Elia Woodson
[2020-09-02] MEDS: LACTATED RINGER'S 1,000 ML IV SCH (16:44)
[2020-09-02] MEDS ORDERED: Nursing to Pharmacy Communication SCH (17:00)
[2020-09-02] MEDS: oxyCODONE/ACETAMINOPHEN 5mg/325mg TAB PO PRN (20:15)
--- NOTE | 2020-09-02 20:39 | Hospitalist Progress Note ---
Date of Service September 02, 2020 Assessment & Plan (1) Acute cholecystitis: Consulted surgery. S/P cholecystectomy. Patient though had blood in abdomen. Transferred to PCU and ordered CT scan of abd/pel (2) Diabetes mellitus type 2 in nonobese: Patient reported prior history of diabetes but was taken off her Metformin greater than 4 years ago Hemoglobin A1c is 8.9% Patient treated for DKA. Anion gap is now closed, now on subcu insulin. (3) Seizure: Patient has no history of seizure in the past During my examination the patient had what appeared to be a seizure event where her eyes rolled up and patient was unresponsive for 10 to 20 seconds. Patient then had somewhat of a post ictal haze for several seconds EEG was negative for epileptical waveforms. We will discontinue seizure precautions (4) Hypertensive urgency: Systolic pressure 238 on my initial visit Patient received labetalol 10 mg IV x2 and systolic blood pressure dropped to 88 mmHg Hold on further antihypertensives at this time Continue with IV hydration Treat underlying hyperglycemia B/P appears better controlled now. will monitor. (5) Hypokalemia: improving. replenished potassium (6) Transaminitis: Patient denies heavy alcohol consumption No prior liver disease Ultrasound of abdomen shows echogenic liver suggestive of hepatic steatosis Continue with IV hydration and follow serial labs (7) Hyponatremia: Sodium is slightly low at 134 mmol/L Received 1 L of normal saline in the emergency department Continuing normal saline with 20 mEq of potassium at 200 mL/h Follow serial labs Patient alert and oriented (8) Tobacco abuse: Patient currently smokes 1/2 pack/day Deferring on NicoDerm patch Patient did have a period where she quit smoking but started smoking again 7 or 8 years ago Counseled on complete abstention Smoking cessation order placed (9) Prolonged Q-T interval on ECG: Normal sinus rhythm on EKG with no other significant abnormalities Echocardiogram ordered Check serial EKGs in the morning No chest pain or tightness Monitor on telemetry (10) DVT prophylaxis: No chemical prophylaxis at this time SCD knee-high's ordered CARITO hose ordered Admission and Anticipated Discharge Date Admission Date: August 31, 2020 Subjective Patient reports doing well. She has no new complaints at this time. Review of Systems Review of Systems: All systems reviewed & are unremarkable except as noted in HPI & below Physical Exam Physical Exam: GENERAL : No acute distress. Patient appears comfortable. EYES: No icterus, gaze conjugate. Pupils equal round and reactive to light NOSE: No evidence of epistaxis MOUTH: No lesions or candidiasis. Mucosa dry NECK: Supple. No stridor or bruits appreciated LUNGS: CTA B/L, no wheezes, rales or rhonchi HEART: Regular, rate controlled ABDOMEN: Soft, NT, ND, BS Present. No rebound tenderness. No guarding. EXTREMITIES: No LE edema, pedal pulses intact NEURO: A&OX3. Results & Data Results & Data ([facility] [place]) Vital Signs (Past 12 Hours) Vital Signs Temp Pulse Pulse Pulse Resp BP BP 09/02/20 19:23 36.9 C 96 H 17 182/84 H 09/02/20 17:15 36.4 C L 98 H 18 154/71 H 09/02/20 16:39 36.5 C 98 H 18 175/81 H 09/02/20 16:00 36.4 C L 103 H 96 H 18 185/78 H 09/02/20 15:40 97 H 17 173/84 H 09/02/20 15:30 36.4 C L 97 H 15 175/78 H 09/02/20 15:20 94 H 16 179/89 H 09/02/20 15:10 99 H 17 186/76 H 09/02/20 15:00 93 H 17 178/80 H 09/02/20 14:50 36.4 C L 83 14 159/74 H 09/02/20 12:29 36.8 C 91 H 18 168/83 H 09/02/20 11:07 37 C 96 H 18 186/93 H Pulse Ox 09/02/20 19:23 96 09/02/20 17:15 99 09/02/20 16:39 99 09/02/20 16:00 99 09/02/20 15:40 99 09/02/20 15:30 99 09/02/20 15:20 99 09/02/20 15:10 99 09/02/20 15:00 99 09/02/20 14:50 100 09/02/20 12:29 97 09/02/20 11:07 96 PG Care Time/CCT Total # of Minutes Spent Total Time Spent with Patient: Total time spent is greater than 50% in coordination of care (as documented) at patient's floor/unit and/or counseling patient: Coding Level of Care Code 84953 Subseq Hosp Care Lvl 3 Diagnoses Acute cholecystitis K81.0 Diabetes mellitus type 2 in nonobese E11.9 Seizure R56.9 Hypertensive urgency I16.0 Hypokalemia E87.6 Transaminitis R74.01 Hyponatremia E87.1 Tobacco abuse Z72.0 Prolonged Q-T interval on ECG R94.31 DVT prophylaxis Z29.9
[2020-09-02] MEDS ORDERED: OPTIRAY 320 125ml IV ONE (22:17)
[2020-09-03] MEDS: LACTATED RINGER'S 1,000 ML IV SCH (01:58)
[2020-09-03] MEDS: oxyCODONE/ACETAMINOPHEN 5mg/325mg TAB PO PRN ×2 (01:58→09:53)
[2020-09-03] MEDS: cefOXitin 2,000 MG in DEXTROSE 5% 50 ML IV SCH ×3 (03:10→15:07)
[2020-09-03 06:43] LABS: Basophils # (auto) 0.03 K/uL (0-0.2); Basophils % (auto) 0.3 %; Eosinophils # (auto) 0.08 K/uL (0-0.5); Eosinophils % (auto) 0.7 %; Hematocrit (blood only) 26.7 % (37-47); Immature Granulocytes # (auto) 0.05 K/uL (0.00-0.02); Immature Granulocytes % (auto) 0.4 %; Lymphocytes # (auto) 2.32 K/uL (1.2-3.4); Lymphocytes % (auto) 20.8 %; Mean Corpuscular Hemoglobin 28.6 pg (25-34); Mean Corpuscular Hgb Conc 33.7 g/dL (32-36); Mean Corpuscular Volume 84.8 fL (80-100); Monocytes # (auto) 1.01 K/uL (0.11-0.59); Monocytes % (auto) 9.1 %; Neutrophils # (auto) 7.64 K/uL (1.4-6.5); Neutrophils % (auto) 68.7 %; Platelet Count 213 K/uL (130-400); RDW Coefficient of Variation 13.3 % (11.5-14.5); RDW Standard Deviation 40.7 fL (36.4-46.3); Red Blood Count 3.15 M/uL (4.2-5.4); White Blood Count 11.13 K/uL (4.8-10.8)
[2020-09-03 07:11] LABS: Albumin Level 2.7 gm/dl (3.4-5.0); BUN Creatinine Ratio 17.6 (10-20); Bilirubin Direct 0.2 mg/dl (0-0.2); Calcium 8.7 mg/dl (8.5-10.1); Creatinine Clr Calc Pharmacy 123.7 ml/min; Est GFR (Non-African American) 104.4; Magnesium 1.9 mg/dl (1.8-2.4); Potassium 3.4 mmol/L (3.5-5.1)
[2020-09-03 07:14] LABS: Phosphorus 3.4 mg/dl (2.5-4.9); Total Protein 5.9 gm/dl (6.4-8.2)
[2020-09-03] MEDS ORDERED: INSULIN GLARGINE SOLOSTAR 100 UNITS/ML 3 ML PEN SC ONE (08:00)
[2020-09-03] MEDS: INSULIN ASPART 100 UNITS/ML 3 ML PEN SC SCH ×3 (08:40→17:19)
--- NOTE | 2020-09-03 08:52 | CT Scan Report ---
CT angio abdomen pelvis w con HISTORY: eval for source of bleed;pt had blood in abdomen prior to OR TECHNIQUE: Multiaxial CT images of the abdomen and pelvis were performed following the intravenous ad ministration of 116 cc of Optiray 320 to evaluate the major arterial structures. Maximal intensity pr ojection images were also obtained. COMPARISON STUDY: Abdominal ultrasound 08/31/2020. FINDINGS: A few bibasilar linear densities favor subsegmental atelectasis. There is trace pneumoperit oneum. This is likely due to the patient's postoperative state. No suspicious lytic or blastic osseou s lesions. The gallbladder is surgically absent. Trace fluid the gallbladder fossa is considered to b e within the range of normal limits given the immediate postoperative status. There is a 2.5 cm diver ticulum at the second portion of the duodenum. Mild hepatic steatosis. No hepatic or splenic lacerati ons. The adrenal glands and pancreas are unremarkable. No hydronephrosis. A few bilateral renal hypod ense lesions. These are incompletely characterized on this single phase study but statistically repre sent cysts. Dominant hypodense lesion within the left kidney measures 1.5 cm. No retroperitoneal bradley opathy or hematoma. Normal bladder. No bowel wall thickening or obstruction. The appendix is not iden tified and reportedly surgically absent. Small to moderate amount of hyperdense fluid within the deep pelvis surrounding the uterus and ovaries consistent with hemoperitoneum. This partially obscures th becky structures. However, the ovaries appear to be normal in size. Calcifications within the uterus ar e consistent with small fibroids. There are a few additional small areas of hemoperitoneum within the bilateral paracolic gutters. Moderate calcified plaque within the normal caliber abdominal aorta and common iliac arteries. No jj dence for occlusion or aneurysm within the aorta or iliac arteries. The celiac, superior mesenteric, and inferior mesenteric arteries are also patent. No evidence for a splenic artery aneurysm. Best see n on image 55 abutting the posterior aspect of the left hepatic lobe there is a 1.3 cm saccular aneur ysm extending from a branch of the left gastric artery. There is no surrounding hemorrhage. There is also a small branch extending anteriorly from this aneurysm to the expected location of the left port al vein. This could represent an AV fistula. IMPRESSION: 1. Small to moderate amount of hemoperitoneum within the abdomen and pelvis as described above. This primarily surrounds and partially obscures the uterus and ovaries. The exact etiology of this hemorrh age is not clearly identified on this study but could be secondary to a genitourinary process given t he majority of the hemorrhage located within the deep pelvis. No active extravasation identified at t his time. Continued follow-up recommended to assess for the source of hemorrhage as this could be pat hologic. 2. 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 There is no surrounding hemorrhage. There is also small arterial branch which extends anteriorly from this aneurysm and courses towards the left portal vein . Therefore, this could represent an AV fistula at this location. Vascular surgery consultation recom mended. 3. Postoperative changes consistent with recent post cystectomy. 4. Additional findings as described above. 5. These findings were called/faxed to the referring physician following dictation. ACT 112: Negative or not required by law. Electronically signed by: Nick Stone M.D. 09/03/2020 8:51 AM
[2020-09-03] MEDS ORDERED: INSULIN GLARGINE SOLOSTAR 100 UNITS/ML 3 ML PEN SC SCH (09:00)
--- NOTE | 2020-09-03 09:45 | Surgery Progress Note ---
Date of Service September 03, 2020 Assessment & Plan (1) Acute cholecystitis: POD#1 laparoscopic cholecystectomy - WBC: 11.1, Hb (9.6), Tb: 1, AST: 44, ALT: 124, Alkp: 148 - Intraoperative findings revealed some clotted blood in the RUQ, LUQ, and pelvic regions. She was noted to have a drop in Hbg since admission 15 to 9. - CTA was ordered yesterday evening which revealed small to moderate amount of hemoperitoneum within the abdomen and pelvis, with the etiology unclear but could be secondary to a genitourinary process given the location of the blood in the pelvis; no active extravasation seen. Also question of an AV fistula - Otherwise cholecystectomy was straightforward. She appears to be recovering well post operatively - Okay to advance diet as tolerates - Patient will need follow with Dr. Bush in clinic within 1-2 weeks Admission and Anticipated Discharge Date Admission Date: August 31, 2020 Supervising Physician Co-Signing Physician Notes pnt s&e, agree with above. POD#1 lap kyle with finding of old intraperitoneal hemorrhage at time of surgery from unknown source. DOing well, tolerating diet, feels great. afvss, nad, abd soft, nt, nd, incision c/d/i. CT with possible gastric artery aneurysm, vascular consulted. may need outpnt pelvic us or follow up ct. okay for d/c from surgery standpoint once vascular weighs in. Subjective Patient states she is doing well. Required some pain medication overnight, but is overall well managed. She is currently eating a regular diet. Denies nausea/vomiting. Physical Exam Physical Exam: awake/alert Constitutional: no acute distress Respiratory: normal respiratory effort Gastrointestinal (Abdomen): Inspection/Auscultation: + abdominal surgical incision (c/d/i with dermabond overtop); abdomen not distended Percussion/Palpation: abdomen soft; abdomen nontender Results & Data ([facility]) Vital Signs (Past 12 Hours) Vital Signs Temp Pulse Pulse Resp BP Pulse Ox 09/03/20 08:00 94 H 09/03/20 07:54 36.8 C 83 17 167/82 H 95 09/03/20 03:29 36.7 C 81 18 148/74 H 95 09/02/20 22:59 37.1 C 87 17 168/78 H 95 PG Care Time/CCT Total # of Minutes Spent Total Time Spent with Patient: Total time spent is greater than 50% in coordination of care (as documented) at patient's floor/unit and/or counseling patient: Coding Level of Care Code None Diagnoses Acute cholecystitis K81.0
--- NOTE | 2020-09-03 16:04 | Consultation ---
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 There does not appear to be any local active bleeding or sign of recent bleeding from this site. No vascular surgical intervention required at this time. This likely has been present for many years. Recommend reeval with CTA in 6 months. Pt agreeable. Please call if needed otherwise. History of Present Illness Reason for Consultation: gastric art aneurysm Attending Physician: Jean Pierre Vital History of Present Illness 64 yo f with hx of DMII, HTN, admitted with acute cholecystitis and s/p lap cholecystectomy, seen in consultation today for gastric art aneurysm noted on CTA abd/pelvis. Pt was noted to have some old blood in the peritoneum and pelvis at the time of her lap kyle, and her hgb demonstrated an acute decrease from 15 to 9.9, and so CTA was ordered d/t concern for bleeding source. Pt states no prior knowledge of any aneurysm and is feeling well. Denies LOPEZ, fever, dizziness, chest pain, SOB, abd pain besides her surgical site, N/V, rest pain, claudication, other complaints. Does state she fell on ice while walking to her barn to feed her animals about 4 weeks ago, but did not seek medical attention at the time. No hx of abnormal uterine bleeding and does not see a senior energy analyst. CTA demonstrates 1.3cm saccular aneurysm of gastric artery without local bleeding, as well as redemonstration of the pelvic blood. Allergies Allergy/AdvReac Type Severity Reaction Status Date / Time No Known Allergies Allergy Unverified 08/31/20 06:40 Home Medications Medication Instructions Recorded Confirmed Type No Known Home Medications 08/31/20 08/31/20 History oxycodone-acetaminophen [Percocet] 1 - 2 tab PO .q4-6h PRN #15 tab 09/03/20 Rx Patient History Medical History Acute cholecystitis Anemia Diabetes mellitus type 2 in nonobese Hypertensive urgency Prolonged Q-T interval on ECG Smoker Tobacco abuse Transaminitis Surgical History Hx laparoscopic cholecystectomy (09/02/20) Laparoscopic Cholecystectomy, diagnostic laparoscopy with washout Dr. Bush 09/02/20 No significant past surgical history Family History Other Family history non-contributory Social History Smoking Status: Current every day smoker Tobacco Type: Cigarettes packs per day: 0.5; Hx Alcohol Use: No Hx Substance Use: No Preferred Language: Tajik Communication Ability: Effective Business Controller Required: No Beliefs That Will Affect Care: Spiritism Spiritism Beliefs: Uatsdin Current Living Situation: Spouse and Family Current Living Situation Comment: lives with and daughter Other Information That Helps Us Care for You: No Feels Safe at Home: Yes Safety Concerns: Feels Safe At This Time Assistive Devices: None Review of Systems Review of Systems: All systems reviewed & are unremarkable except as noted in HPI & below Physical Exam Constitutional: WD/WN, vitals as above Eyes: PERRL, conjunctivae normal, anicteric sclerae ENMT: Ears: no hearing impairment Neck: trachea midline Respiratory: normal respiratory effort, lungs clear to auscultation Auscultation: + diminished lung sounds Cardiovascular: RRR, no murmur, no edema Gastrointestinal (Abdomen): Inspection/Auscultation: normal bowel sounds and + abdominal surgical incision (from lap kyle); abdomen not distended and no abdominal edema Percussion/Palpation: + abdomen tender (near incisions and RUQ, mildly tender) and abdomen soft; no guarding Musculoskeletal: no cyanosis or clubbing, extremities motor strength 5/5 Skin: no rashes, warm and dry Neurologic: moves all extremities and awake; no focal motor deficits and not confused Psychiatric: A+Ox3, euthymic affect Results & Data ([facility]) Vital Signs (Past 12 Hours) Vital Signs Temp Pulse Pulse Resp BP Pulse Ox 09/03/20 15:24 36.7 C 78 16 146/74 H 96 09/03/20 11:27 36.8 C 86 19 164/69 H 95 09/03/20 08:00 94 H 09/03/20 07:54 36.8 C 83 17 167/82 H 95
[2020-09-03] MEDS ORDERED: POTASSIUM CHLORIDE CRTAB 20 MEQ TABCR PO STA (16:05)
[2020-09-04] MEDS ORDERED: INSULIN ASPART 100 UNITS/ML 3 ML PEN SC SCH (02:00)
--- NOTE | 2020-09-09 22:09 | Discharge Summary ---
Date of Service September 03, 2020 Admission HPI Per Admitting Provider Attending: Dr. Vital This is a 64-year-old female that reports a past medical history of prediabetes mellitus type II and tobacco abuse. She denies any other prior past medical history. The patient states that she has a history of diabetes and was on Metformin for period of time but her doctor took her off of that medication more than 4 years ago. Otherwise, she states that she has not received any other medical care. She has 1 child and during the delivery she was in the ICU. She has no other reported inpatient stays. The patient reports that over the last 2 days she has had increased abdominal pain. She has had some nausea and vomiting but no hematemesis no diarrhea. She denies any fever. She does state that this morning she had chills and rigors. Ultrasound imaging revealed what appears to be acute cholecystitis. Laboratory results were reviewed and showed possible acute diabetic ketoacidosis although her anion gap is only 12. She has hypokalemia with a potassium of 3.1. Magn esium is 1.7. Phosphorus is currently pending. Patient also found to have transaminitis. Physical examination with no acute pain with palpation and no guarding. Patient did report with hypertensive urgency and received labetalol x2 resulting in a systolic blood pressure of 88 mmHg. She received 1 L of normal saline in the emergency department and was placed on maintenance dosing of 200 mL/h. EKG revealed prolonged QTC at 521 ms. Echocardiogram was ordered and is pending. D-dimer was elevated to 1200. No hypoxia. No tachycardia. No pleuritic chest pain. Patient admitted to PCU telemetry Principal Diagnosis acute cholecystitis Discharge Exam GENERAL : No acute distress. Patient appears comfortable. EYES: No icterus, gaze conjugate. Pupils equal round and reactive to light NOSE: No evidence of epistaxis MOUTH: No lesions or candidiasis. Mucosa dry NECK: Supple. No stridor or bruits appreciated LUNGS: CTA B/L, no wheezes, rales or rhonchi HEART: Regular, rate controlled ABDOMEN: Soft, NT, ND, BS Present. No rebound tenderness. No guarding. EXTREMITIES: No LE edema, pedal pulses intact NEURO: A&OX3. Discharge Data Allergies Allergy/AdvReac Type Severity Reaction Status Date / Time No Known Allergies Allergy Unverified 08/31/20 06:40 Consultations 08/31/20 07:50 ED Decision to Admit Stat 08/31/20 18:09 Consult Gastroenterology Routine Consult General Surgery Routine 09/03/20 10:37 Consult Vascular Surgery Routine Procedures Performed Operation Date: 09/02/20 12:10 Actual Procedures p Laparoscopic Cholecystectomy(Not Applicable) - Nate Bush DO, FACS Ordered Studies 08/31/20 05:41 US gallbladder Stat 09/02/20 16:02 CT angio abdomen pelvis w con Urgent Hospital Course (1) Acute cholecystitis: Consulted surgery. S/P cholecystectomy. Appreciate input fro surgery: POD#1 laparoscopic cholecystectomy - WBC: 11.1, Hb (9.6), Tb: 1, AST: 44, ALT: 124, Alkp: 148 - Intraoperative findings revealed some clotted blood in the RUQ, LUQ, and pelvic regions. She was noted to have a drop in Hbg since admission 15 to 9. - CTA was ordered yesterday evening which revealed small to moderate amount of hemoperitoneum within the abdomen and pelvis, with the etiology unclear but could be secondary to a genitourinary process given the location of the blood in the pelvis; no active extravasation seen. Also question of an AV fistula - Otherwise cholecystectomy was straightforward. She appears to be recovering well post operatively - Okay to advance diet as tolerates - Patient will need follow with Dr. Bush in clinic within 1-2 weeks (2) Diabetes mellitus type 2 in nonobese: Patient reported prior history of diabetes but was taken off her Metformin greater than 4 years ago Hemoglobin A1c is 8.9% Patient treated for DKA. Anion gap is now closed, now on subcu insulin. (3) Seizure: Patient has no history of seizure in the past During my examination the patient had what appeared to be a seizure event where her eyes rolled up and patient was unresponsive for 10 to 20 seconds. Patient then had somewhat of a post ictal haze for several seconds EEG was negative for epileptical waveforms. We will discontinue seizure precautions (4) Hypertensive urgency: Systolic pressure 238 on my initial visit Patient received labetalol 10 mg IV x2 and systolic blood pressure dropped to 88 mmHg Hold on further antihypertensives at this time Continue with IV hydration Treat underlying hyperglycemia B/P appears better controlled now. will monitor. (5) Hypokalemia: improving. replenished potassium (6) Transaminitis: Patient denies heavy alcohol consumption No prior liver disease Ultrasound of abdomen shows echogenic liver suggestive of hepatic steatosis Continue with IV hydration and follow serial labs (7) Hyponatremia: resolved. 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 There does not appear to be any local active bleeding or sign of recent bleeding from this site. No vascular surgical intervention required at this time. This likely has been present for many years. Recommend reeval with CTA in 6 months. Pt agreeable. Total Time Total Time Spent Total Time Spent (In Minutes): 32 Total Time Includes: Examination of the Patient, Discharge Planning, Medication Reconciliation and Communication With Other Providers Discharge Plan Discharge Items Patient Disposition: Home - Self-Care Reason For Visit: DKA,HYPERTENSIVE SURGERY Discharge Diagnosis: DKA, hypertension Activity: Per Instructions section Lifting: No more than 10 pounds Bathing Comment: may shower; no soaking in tubs/pools Exercise/Sports: Wait until after follow-up appointment Driving/Machine Use: do not resume driving while taking narcotics for pain Non-emergency contact: Primary Care Provider Call non-emergency contact if: you have any medication questions, your symptoms worsen, your pain is not controlled, your pain is worsening, your pain is concerning for you, your temperature is above 101.5, your wound has increased redness, your wound has increased drainage and your wound pain has increased Follow-up/Referrals: Nate Bush DO, FACS [Physician] - (Please call to schedule follow up in clinic within 2 weeks) Eve Swann CRNP [Primary Care Provider] - Diet: Carb Consistent or DM2 Addtl Attending Provider Instructions: followup with PCP in 1-2 weeks. Pending Studies at Discharge: Yes Studies:: surgical pathology Stand-Alone Forms: My [facility], Smoking Cessation Medications and DC Order Prescriptions: New oxycodone-acetaminophen [Percocet] 5-325 mg tablet 1 - 2 tab PO .q4-6h PRN (Reason: pain, for initial therapy, max 6 tabs per day) Qty: 15 RF: 0 metformin 750 mg tablet extended release 24 hr 750 mg PO PM Qty: 30 RF: 0 glipizide 2.5 mg tablet extended release 24hr 2.5 mg PO DAILY Qty: 30 RF: 0 lisinopril 5 mg tablet 5 mg PO DAILY Qty: 30 RF: 0 No Action No Known Home Medications RF: 0 Discharge Orders: Discharge Order (Routine); Ordered 09/03/20 Ordered By: Jean Pierre Vtial Admission Data Admit Date/Time: 08/31/20 08:47 Attending Provider: Jean Pierre Vital Admit Provider: Jean Pierre Vital Primary Care Provider: Eve Swann Other Providers: Jean Pierre Vital ; Lj Vidal ; Jason Lenz ; Nas Huff Other Interventions: Discharge Summary Assessment (RN) Last Done: 09/03/20 17:35 Coding Level of Care Code D/C Day Management >30 mins Diagnoses Acute cholecystitis K81.0 Diabetes mellitus type 2 in nonobese E11.9 Seizure R56.9 Hypertensive urgency I16.0 Hypokalemia E87.6 Transaminitis R74.01 Hyponatremia E87.1 Tobacco abuse Z72.0 Prolonged Q-T interval on ECG R94.31 DVT prophylaxis Z29.9 Gastric artery aneurysm I72.8
== END 2020-09-03 18:44 | disposition home or self-care (01) | DRG 417 ==
LOC: ED 05:20 → 2S 08:47 → 2W 09-01 14:27 → 2S 09-02 16:09